=== PATIENT | male | born 1940 | race Caucasian/White ===

== ENCOUNTER → 2016-03-31 | Outpatient (CLI) | payer BC ==
[~2016-03-31] MED LIST: ASPI-232 PO; ATOR-14 PO; CLOP1TAB15 PO; DOCU100C31 PO; DONE1TAB11 PO; ISOS60TA2 PO; LISI2.5T5 PO; METO1TAB31 PO; NITR0.4S UT; PANT1TAB48 PO; POLY335019 PO; TAMS0.4C59 PO
[2016-03-31 13:34] LABS: BASO % 0.6 %; BASO ABS # 0.03 K/uL (0-0.2); COMPLETE YES; EOS % 2.4 %; HEMATOCRIT 42.5 % (42-52); IG% 0.2 %; LYMPH % 24.5 %; LYMPH ABS # 1.14 K/uL (1.2-3.4); MEAN CELL VOLUME 96.8 fL (80-100); MEAN CORPUSCULAR HEMOGLOBIN 33.9 pg (25-34); MEAN CORPUSCULAR HGB CONC 35.1 g/dl (32-36); MEAN PLATELET VOLUME 11.7 fL (7.4-10.4); NEUT % 58.3 %; PLATELET COUNT 160 K/uL (130-400); RED BLOOD COUNT 4.39 M/uL (4.7-6.1); WHITE BLOOD COUNT 4.65 K/uL (4.8-10.8)
[2016-03-31 14:06] LABS: ALT/SGPT 27 U/L (12-78); BLOOD UREA NITROGEN 17 mg/dl (7-18); BUN/CREATININE RATIO 13.1 (10-20); CALCIUM 9.8 mg/dl (8.5-10.1); CARBON DIOXIDE 26 mmol/L (21-32); CHLORIDE 103 mmol/L (98-107); CHOLESTEROL 167 mg/dl (0-200); GLUCOSE 88 mg/dl (70-99); POTASSIUM 3.9 mmol/L (3.5-5.1); SODIUM 137 mmol/L (136-145); TRIGLYCERIDES 36 mg/dl (0-150); VERY LOW DENSITY LIPOPROT CALC 7 mg/dl
[2016-03-31 14:13] LABS: ALB/GLOB RATIO 1.1 (0.9-2); ALKALINE PHOSPHATASE 52 U/L (45-117); AST/SGOT 26 U/L (15-37); CHOLESTEROL/HDL RATIO 1.5; HDL CHOLESTEROL 114 mg/dl; LDL CHOLESTEROL CALCULATED 46 mg/dl
--- NOTE | 2016-04-04 10:37 | CODING QUERY MEDICAL NECESSITY ---
SUPPORTING DIAGNOSIS NEEDED A supporting diagnosis is required for the test/procedure performed on this patient in order for us to be reimbursed by the patient's insurance. Please provide a supporting diagnosis for the following test/procedure listed below next to the test name along with your signature. *If there is no additional diagnosis for this patient that would support the following test/procedure please document that below next to the test/procedure. Test(s)/Procedure(s) that require a supporting diagnosis: * VITAMIN D 25-HYDROXY DIAGNOSIS: * VITAMIN B-12 LEVEL DIAGNOSIS: * DOS: 03/31/16 Provider Signature: Date: Thank you Chelsey Hussein Health Information Management Once completed, please kindly fax back to [phone] For questions please call [phone]
== END | disposition home or self-care (01) ==
LOC: C.LABBC 10:28
PROVIDERS: ATTEND Internal Medicine Geriatric Medicine
DX: I10 Essential (primary) hypertension (principal)

== ENCOUNTER → 2016-04-07 | Outpatient (CLI) | payer BC ==
--- NOTE | 2016-04-07 12:02 | DIAGNOSTIC IMAGING REPORT ---
MRI LUMBAR SPINE WITHOUT IV CONTRAST CLINICAL HISTORY: Chronic low back pain. Bilateral lower extremity numbness. COMPARISON STUDY: No priors. TECHNIQUE: MRI of the lumbar spine is performed utilizing various T1 and T2-weighted sequences in the axial and sagittal planes. IV contrast was not administered for this examination. FINDINGS: Lumbar spine: Vertebral body height is maintained throughout the lumbar spine. There is minimal anterolisthesis at L4-L5. Minimal retrolisthesis is seen at L2-L3. The transverse and spinous processes are intact as visualized. Anterior osteophytes are seen throughout. Advanced chronic degenerative endplate change is present at L5-S1. There is only minimal marrow edema at this level. Mild endplate change and edema is also seen at L2-L3. No destructive bony lesion is identified. Intervertebral discs: There is advanced degenerative disc desiccation and loss of height throughout the lumbar spine. This is severe at all levels, greatest at L5-S1. Spinal cord: The visualized spinal cord is normal in morphology and signal intensity. The conus medullaris terminates at the L1-L2 interspace. There is severe tethering of the nerve roots of the cauda equina seen at L2-L3, L3-L4, and L4-L5. Several of the nerve roots appear coiled and mildly thickened. L1-L2: There is a posterior disc bulge with annular fissure. There is no significant acquired compromise of the central canal at this level. The neural foramina are patent. L2-L3: There is a broad-based posterior disc bulge eccentric to the left. In conjunction with hypertrophy of the ligamentum flavum there is mild acquired compromise of the central canal at this level. The minimum AP diameter measures 9 mm. There is severe bilateral subarticular stenosis, left greater than right with probable impingement on the exiting bilateral L2 nerve roots as well as the transiting nerve roots. There is mild neural foraminal stenosis bilaterally secondary to facet arthropathy. L3-L4: There is broad-based posterior disc bulge with annular fissure. In conjunction with hypertrophy of the ligamentum flavum there is moderate central canal stenosis at this level. The minimum AP diameter measures 6 mm. There is severe bilateral subarticular stenosis, with probable impingement on the exiting bilateral L3 nerve roots as well as the transiting bilateral nerve roots. Facet arthropathy causes minimal neural foraminal stenosis. L4-L5: There is posterior disc bulge with annular fissure. In conjunction with hypertrophy of the ligamentum flavum this causes severe central canal stenosis. The minimum AP diameter measures 4 mm. There is severe bilateral subarticular stenosis, with probable impingement on the exiting bilateral L4 and the transiting bilateral L5 nerve roots. Facet arthropathy causes minimal neural foraminal stenosis. L5-S1: There is a small posterior disc bulge eccentric to the right. There is no significant acquired compromise of the central canal at this level. There is mild bilateral subarticular stenosis. This may impinge on the exiting bilateral L5 nerve roots as well as the transiting right S1 nerve root. Facet arthropathy causes moderate right and mild left neural foraminal stenosis. Sacrum: There is fatty marrow replacement noted in the sacrum. No acute abnormality is seen. Soft tissues: There is moderate left hydronephrosis. The left ureter is normal in caliber and this likely represents a UPJ type obstruction. The bladder is markedly distended. The bladder wall is thickened and trabeculated, suggesting chronic outlet obstruction. The paraspinous soft tissues are normal in appearance. IMPRESSION: 1. Moderate to advanced lumbosacral spondylosis as above with multilevel acquired compromise of the central canal. This is greatest at L4-L5. See above discussion for detailed level by level analysis. 2. Degenerative disc disease with associated endplate change as above. There is no MRI evidence of fracture. 3. There is multilevel tethering of the nerve roots of the cauda equina. Several nerve roots appear coiled and mildly thickened. This may represent a mild reactive arachnoiditis secondary to spinal stenosis. 4. There is moderate left hydronephrosis. 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 Consider follow-up with urology. 5. The bladder wall is distended. The bladder wall is thickened and trabeculated, and this likely represents the sequelae of chronic bladder obstruction. Dictated: 04/07/2016 10:49 AM Transcribed: 04/07/2016 12:01 PM [facility] Electronically signed by: Eduar Rosas M.D. 04/07/2016 12:07 PM Dictated Date/Time: 04/07/2016 10:49 AM
== END | disposition home or self-care (01) ==
LOC: C.MRIBC 09:24
PROVIDERS: ATTEND Internal Medicine
DX: M48.06 Spinal stenosis, lumbar region (principal)

== ENCOUNTER → 2016-05-03 | Outpatient (CLI) | payer BC ==
[~2016-05-03] MED LIST changes: -CLOP1TAB15 PO; -LISI2.5T5 PO
== END | disposition home or self-care (01) ==
LOC: C.LABSPEC 17:07
PROVIDERS: ATTEND Nurse Practitioner Adult Health
DX: N40.1 Benign prostatic hyperplasia with lower urinary tract symptoms (principal); R33.9 Retention of urine, unspecified

== ENCOUNTER → 2016-05-10 | Outpatient (CLI) | payer BC ==
[~2016-05-10] MED LIST changes: +OPTIRAY 300 IV PRN
--- NOTE | 2016-05-10 14:56 | DIAGNOSTIC IMAGING REPORT ---
IVP W/OR W/O TOMOGRAMS HISTORY: R33.9 Incomplete bladder emptying NEGATIVE TO ALL [id number] COMPARISON STUDY: Lumbar spine MRI 04/07/2016. FINDINGS: [employer] images demonstrate extensive overlying bowel gas. There are few pelvic calcifications consistent with phleboliths. No definite renal or ureteral calculi. There are surgical clips within the left side of the abdomen. Confirmation of a moderate left hydronephrosis with probable caliber change at the ureteropelvic junction. The left ureter is not identified. No right-sided hydronephrosis. The right visualized ureter appears be normal in course and caliber. The bladder is normal in size and shape. Small postvoid residual. IMPRESSION: 1. Near nondiagnostic evaluation of the urinary system due to the extensive overlying bowel gas. 2. Confirmation of the moderate left hydronephrosis. Probable caliber change at the ureteropelvic junction. This could be due to a congenital UPJ obstruction. However, an obstructing lesion cannot be excluded due to the suboptimal evaluation from the overlying bowel gas. 3. Small postvoid residual. 4. No right-sided hydronephrosis. 5. No definite renal or ureteral calculi. Electronically signed by: Saturnino Greenberg M.D. 05/10/2016 2:55 PM Dictated Date/Time: 05/10/2016 2:51 PM
[2016-05-10 15:07] VITALS: BP 194/94; PULSE 58
== END | disposition home or self-care (01) ==
LOC: C.RAD 12:24
PROVIDERS: ATTEND Nurse Practitioner Adult Health
DX: R33.9 Retention of urine, unspecified (principal); N13.30 Unspecified hydronephrosis

== ENCOUNTER → 2016-08-02 | Outpatient (CLI) | payer BC ==
[~2016-08-02] MED LIST changes: +METO-478 PO; -METO1TAB31 PO; -OPTIRAY 300 IV PRN
--- NOTE | 2016-08-02 10:35 | DIAGNOSTIC IMAGING REPORT ---
MRI OF THE BRAIN WITHOUT CONTRAST CLINICAL HISTORY: R47.01 [id number] DEMENTIA. POSSIBLE STROKE. COMPARISON STUDY: None. FINDINGS: Sagittal T1, axial diffusion, proton density and T2 weighted axial, coronal FLAIR, and axial T1-weighted images were acquired. No intra or extra-axial mass lesions are visualized Axial diffusion-weighted images reveal no evidence of acute or subacute infarction. There is no evidence of ventricular dilatation. Proton density T2-weighted and FLAIR images reveal scattered foci of increased T2 signal within the white matter, likely on a small vessel basis. There are no abnormal flow voids. IMPRESSION: 1. No acute intracranial findings 2. No evidence of intracranial mass on this noncontrast study 3. No evidence of acute or subacute infarction 4. Nonspecific foci of increased T2 signal within the white matter, likely on a small vessel basis Electronically signed by: David Sullivan M.D. 08/02/2016 10:33 AM Dictated Date/Time: 08/02/2016 10:30 AM
== END | disposition home or self-care (01) ==
LOC: C.MRI 09:42
PROVIDERS: ATTEND Psychiatry & Neurology Neurology
DX: R47.01 Aphasia (principal)

== ENCOUNTER → 2017-01-04 | Outpatient (CLI) | payer BC ==
[2017-01-04 17:15] LABS: URINE APPEARANCE CLOUDY (CLEAR); URINE BILIRUBIN NEG (NEG); URINE COLOR YELLOW; URINE NITRITE NEG (NEG); URINE PH 6.5 (4.5-7.5); URINE SPECIFIC GRAVITY 1.013 (1.000-1.030); UROBILINOGEN NEG (NEG)
[2017-01-04 17:18] LABS: MANUAL MICROSCOPIC REQUIRED? NO; REVIEW REQ? NO
== END | disposition home or self-care (01) ==
LOC: C.LABBC 13:01
PROVIDERS: ATTEND Internal Medicine
DX: R31.9 Hematuria, unspecified (principal)

== ENCOUNTER → 2017-01-17 | Outpatient (CLI) | payer BC ==
[2017-01-17 13:39] LABS: URINE APPEARANCE CLEAR (CLEAR); URINE BILIRUBIN NEG (NEG); URINE COLOR YELLOW; URINE EPITHELIAL CELL AUTO >30 /lpf (0-5); URINE NITRITE NEG (NEG); URINE PH 6.5 (4.5-7.5); URINE SPECIFIC GRAVITY 1.015 (1.000-1.030); UROBILINOGEN NEG (NEG)
[2017-01-17 13:48] LABS: MANUAL MICROSCOPIC REQUIRED? NO; REVIEW REQ? NO
== END | disposition home or self-care (01) ==
LOC: C.LABBC 12:07
PROVIDERS: ATTEND Internal Medicine
DX: R31.9 Hematuria, unspecified (principal)

== ENCOUNTER → 2017-05-29 | Outpatient (CLI) | payer BC ==
[~2017-05-29] MED LIST changes: -DONE1TAB11 PO; +DONE5TAB26 PO; +PANT1TAB3 PO; -PANT1TAB48 PO
[2017-05-29 12:56] LABS: BASO % 0.7 %; BASO ABS # 0.03 K/uL (0-0.2); EOS % 4.9 %; EOS ABS # 0.22 K/uL (0-0.5); HEMATOCRIT 42.2 % (42-52); HEMOGLOBIN 14.5 g/dL (14.0-18.0); IG# 0.01 K/uL (0.00-0.02); LYMPH % 26.3 %; LYMPH ABS # 1.19 K/uL (1.2-3.4); MEAN CELL VOLUME 97.9 fL (80-100); MEAN CORPUSCULAR HEMOGLOBIN 33.6 pg (25-34); MEAN CORPUSCULAR HGB CONC 34.4 g/dl (32-36); MEAN PLATELET VOLUME 11.4 fL (7.4-10.4); MONO % 12.2 %; MONO ABS # 0.55 K/uL (0.11-0.59); NEUT % 55.7 %; NEUT ABS # 2.52 K/uL (1.4-6.5); PLATELET COUNT 144 K/uL (130-400); RED CELL DISTRIBUTION WIDTH CV 12.9 % (11.5-14.5); RED CELL DISTRIBUTION WIDTH SD 46.3 fL (36.4-46.3); WHITE BLOOD COUNT 4.52 K/uL (4.8-10.8)
[2017-05-29 14:04] LABS: BLOOD UREA NITROGEN 16 mg/dl (7-18); CREATININE 1.54 mg/dl (0.60-1.40); GLUCOSE 93 mg/dl (70-99)
[2017-05-29 14:05] LABS: ALT/SGPT 35 U/L (12-78); AST/SGOT 29 U/L (15-37); CALCIUM 9.4 mg/dl (8.5-10.1); CARBON DIOXIDE 27 mmol/L (21-32); SODIUM 138 mmol/L (136-145)
[2017-05-29 14:13] LABS: ALKALINE PHOSPHATASE 57 U/L (45-117); CHOLESTEROL 158 mg/dl (0-200); LDL CHOLESTEROL CALCULATED 55 mg/dl; TOTAL PROTEIN 7.6 gm/dl (6.4-8.2)
== END | disposition home or self-care (01) ==
LOC: C.LABBC 09:12
PROVIDERS: ATTEND Internal Medicine
DX: I25.10 Atherosclerotic heart disease of native coronary artery without angina pectoris (principal); G30.9 Alzheimer's disease, unspecified; F41.9 Anxiety disorder, unspecified; E78.5 Hyperlipidemia, unspecified; I10 Essential (primary) hypertension; K21.9 Gastro-esophageal reflux disease without esophagitis; R47.01 Aphasia; M54.5 Low back pain; M48.061 Spinal stenosis, lumbar region without neurogenic claudication; N40.1 Benign prostatic hyperplasia with lower urinary tract symptoms

== ENCOUNTER 2018-09-18 12:59 | Inpatient (IN) ==
--- NOTE | 2018-09-18 14:22 | Emergency Department Note ---
History of Present Illness General Chief complaint: Fall Stated complaint: Rt hip fracture confirmed via outpt xray History of Present Illness Provider complaint: Fall Patient is a 78-year-old male with a past medical history of dementia, CAD, anxiety, BPH, on hospice that presents to ER following a mechanical fall at the residential. is present at bedside who gives the HPI due to dementia. Fall occurred earlier today and since then he has been having severe pain in his right hip. He is mentally at his baseline. No reported head trauma. notes that he is a DNR/DNI. He is at his baseline. History is limited secondary to dementia. The fall was witnessed at the residential. No other exacerbating or remitting factors. She notes she was instructed to come here fo r further discussion and management of the hip fracture which was previously discovered at the residential the x-rays. Home Medications Home Medications Medication Instructions Recorded Confirmed Type isosorbide mononitrate 60 mg PO QAM 08/22/18 09/18/18 History metoprolol succinate 12.5 mg PO QAM 08/22/18 09/18/18 History nitroglycerin [Nitrostat] 0.4 mg SUBLINGUAL UD PRN 08/22/18 09/18/18 History Allergies Allergy/AdvReac Type Severity Reaction Status Date / Time No Known Allergies Allergy Verified 09/18/18 14:48 Past Med/Surg History Medical History Closed right hip fracture (Acute) Vision problem Onychomycosis of toenail Lumbar spinal stenosis Hypertension (Chronic) Hyperlipidemia Hydronephrosis Enlarged prostate with lower urinary tract symptoms (LUTS) Dementia, Alzheimer's, with behavior disturbance (Chronic) Coronary artery stenosis Chronic low back pain Chronic constipation Chronic GERD Benign prostatic hyperplasia with urinary obstruction Aphasia Anxiety Anemia Abnormal weight loss Alzheimer's dementia GERD (gastroesophageal reflux disease) (Chronic) Surgical History S/P coronary artery stent placement (Chronic) Stented coronary artery (Chronic) Family History Mother Cardiac disorder Anxiety Cancer Myocardial infarction Breast cancer Father Cardiac disorder Myocardial infarction Grandmother Depression Grandmother Diabetes Other Family history non-contributory Social History Preferred Language: Macedonian Feels Safe at Home: Yes Smoking Status: Unknown if ever smoked Review of Systems See HPI for pertinent positives & negatives. and A total of 10 systems reviewed and were otherwise negative Physical Exam Vital Signs Vital Signs - 24 hr 09/18/18 13:09 09/18/18 13:30 09/18/18 14:00 Temperature 36.6 C Temperature Source Axillary Sepsis Recent Fever Within 48 Hours No Sepsis New/Unexplained Change in Mental Status No Sepsis Action Taken by Nursing No Action Required Pulse Rate 74 75 Pulse Rate [Apical] Pulse Rate from SpO2 Sensor Respiratory Rate 13 17 12 Blood Pressure 165/91 H 146/81 H 150/83 H Blood Pressure [Right Arm] Blood Pressure Mean 115 102 105 Blood Pressure Mean [Right Arm] Pulse Oximetry 99 Oxygen Delivery Method Room Air 09/18/18 14:08 09/18/18 14:30 09/18/18 15:20 Temperature Temperature Source Sepsis Recent Fever Within 48 Hours Sepsis New/Unexplained Change in Mental Status Sepsis Action Taken by Nursing Pulse Rate 74 Pulse Rate [Apical] 72 Pulse Rate from SpO2 Sensor 75 Respiratory Rate 14 18 Blood Pressure 159/98 H Blood Pressure [Right Arm] 145/90 H Blood Pressure Mean 118 Blood Pressure Mean [Right Arm] 108 Pulse Oximetry 99 97 98 Oxygen Delivery Method Room Air Room Air Room Air GENERAL: Sitting up in bed, chronically ill-appearing with arms crossed nonverbal HEAD: Normocephalic atraumatic EYE EXAM: normal conjunctiva. PERRL and EOM's grossly intact. OROPHARYNX: no exudate, no erythema, lips, buccal mucosa, and tongue normal and mucous membranes are moist NECK: supple, no nuchal rigidity, no adenopathy, non-tender LUNGS: Clear to auscultation. Normal chest wall mechanics HEART: no murmurs, S1 normal and S2 normal ABDOMEN: abdomen soft, non-tender, normo-active bowel sounds, no masses, no rebound or guarding. BACK: Back is symmetrical on inspection and there is no deformity, no midline tenderness, no CVA tenderness. SKIN: no rashes and no bruising UPPER EXTREMITIES: upper extremities are grossly normal. LOWER EXTREMITIES: Right hip is shortened and externally rotated acutely tender to palpation over the right hip. No tenderness over the right knee or ankle. DP 2 out of 4. Skin is intact. NEURO EXAM: Alert, moving upper extremities and holding them close to the chest. Course ED COURSE: Vital signs were reviewed and showed hypertension. The patients medical record was reviewed The above diagnostic studies were performed and reviewed. ED treatments and interventions as stated above. 1418: The patient was evaluated in room C05. A complete history and physical examination was performed. 1615: Upon reevaluation, the patient is resting in bed. I discussed my findings with the patient and he understands and agrees with the treatment plan. 1634: I spoke to Dr. Archie Gibson [facility] Hospitalist about the patient's case and he is going to accept the patient for further evaluation. Based on the patients age, coexisting illnesses, exam and lab findings the decision to treat as an inpatient was made. The patient remained stable while under my care. The patient will be evaluated for further management. Consultations Consultation #1: I spoke to Dr. Archie Gibson [facility] Hospitalist about the patient's case and he is going to accept the patient for further evaluation. Time: 16:34 Administered Medications Miscellaneous (Patient's Height And/Or Weight Needed) 1 ea N/A Q2H PATY Stop: 10/18/18 18:44 Last Admin: 09/18/18 19:49 Dose: 1 ea Documented by: [id number] Discontinued Medications Lidocaine HCl (Xylocaine Jely 2%) Confirm Administered Dose 5 ml .ROUTE .STK-MED ONE Stop: 09/18/18 18:41 Last Admin: 09/18/18 19:15 Dose: 5 ml Documented by: [id number] Lidocaine HCl (Xylocaine Jely 2%) 5 ml EXT NOW ONE Stop: 09/18/18 18:39 Last Admin: 09/18/18 19:15 Dose: Not Given Documented by: [id number] Medical Decision Making Differential Diagnosis Differential diagnoses include major intracranial, cervical, spinal, thoracic, abdominal, pelvic and neurologic injury. Fracture, contusion, sprain, strain, laceration, abrasions included as well. Medical Records Attestation: I reviewed the patient's medical records. Home Medications Current Medication List: was personally reviewed by me Laboratory Data Attestation: I reviewed the patient's lab results. Result diagrams: 09/18/18 14:27 09/18/18 14:27 Lab Results 09/18/18 09/18/18 09/18/18 Range/Units 14:27 14:27 14:27 WBC 8.57 (4.8-10.8) K/uL RBC 3.99 L (4.7-6.1) M/uL Hgb 12.7 L (14.0-18.0) g/dL Hct 37.3 L (42-52) % MCV 93.5 (80-100) fL MCH 31.8 (25-34) pg MCHC 34.0 (32-36) g/dL RDW Std Deviation 43.3 (36.4-46.3) fL RDW Coeff of Radha 12.8 (11.5-14.5) % Plt Count 196 (130-400) K/uL MPV 10.8 H (7.4-10.4) fL Immature Gran % (Auto) 0.5 % Neut % (Auto) 82.9 % Lymph % (Auto) 9.9 % [place] % (Auto) 6.3 % Eos % (Auto) 0.2 % Baso % (Auto) 0.2 % Immature Gran # (Auto) 0.04 H (0.00-0.02) K/uL Neut # (Auto) 7.10 H (1.4-6.5) K/uL Lymph # (Auto) 0.85 L (1.2-3.4) K/uL [place] # (Auto) 0.54 (0.11-0.59) K/uL Eos # (Auto) 0.02 (0-0.5) K/uL Baso # (Auto) 0.02 (0-0.2) K/uL PT 11.5 (9.0-12.0) Seconds INR 1.1 (0.9-1.1) Sodium 141 (136-145) mmol/L Potassium 4.4 (3.5-5.1) mmol/L Chloride 107 (98-107) mmol/L Carbon Dioxide 28 (21-32) mmol/L Anion Gap 7.0 (3-11) BUN 23 H (7-18) mg/dl Creatinine 1.00 (0.6-1.4) mg/dl Est Cr Clr Drug Dosing Not Reportable Est GFR ( Amer) 84.4 Est GFR (Non-Af Amer) 72.8 BUN/Creatinine Ratio 22.6 H (10-20) Glucose 105 H (70-99) mg/dl Calcium 9.5 (8.5-10.1) mg/dl Total Bilirubin 0.6 (0.2-1) mg/dl AST 33 (15-37) U/L ALT 38 (12-78) U/L Alkaline Phosphatase 92 (45-117) U/L Total Protein 7.3 (6.4-8.2) gm/dl Albumin 3.0 L (3.4-5.0) gm/dl Globulin 4.3 H (2.5-4.0) gm/dl Albumin/Globulin Ratio 0.7 L (0.9-2) Lipase 472 H (73-393) U/L Specimen Hemolysis Urine Color Urine Appearance (Clear) Urine pH (4.5-7.5) Ur Specific Wilson (1.000-1.030) Urine Protein (Negative) Urine Glucose (UA) (Negative) Urine Ketones (Negative) Urine Blood (Negative) Urine Nitrite (Negative) Urine Bilirubin (Negative) Urine Urobilinogen (Negative) Ur Leukocyte Esterase (Negative) Urine WBC (Auto) (0-5) /hpf Urine RBC (Auto) (0-4) /hpf U Hyaline Cast (Auto) (0-5) /lpf U Epithel Cells (Auto) (0-5) /lpf Urine Bacteria (Auto) (Negative) 09/18/18 Range/Units 14:40 WBC (4.8-10.8) K/uL RBC (4.7-6.1) M/uL Hgb (14.0-18.0) g/dL Hct (42-52) % MCV (80-100) fL MCH (25-34) pg MCHC (32-36) g/dL RDW Std Deviation (36.4-46.3) fL RDW Coeff of Radha (11.5-14.5) % Plt Count (130-400) K/uL MPV (7.4-10.4) fL Immature Gran % (Auto) % Neut % (Auto) % Lymph % (Auto) % [place] % (Auto) % Eos % (Auto) % Baso % (Auto) % Immature Gran # (Auto) (0.00-0.02) K/uL Neut # (Auto) (1.4-6.5) K/uL Lymph # (Auto) (1.2-3.4) K/uL [place] # (Auto) (0.11-0.59) K/uL Eos # (Auto) (0-0.5) K/uL Baso # (Auto) (0-0.2) K/uL PT (9.0-12.0) Seconds INR (0.9-1.1) Sodium (136-145) mmol/L Potassium (3.5-5.1) mmol/L Chloride (98-107) mmol/L Carbon Dioxide (21-32) mmol/L Anion Gap (3-11) BUN (7-18) mg/dl Creatinine (0.6-1.4) mg/dl Est Cr Clr Drug Dosing Est GFR ( Amer) Est GFR (Non-Af Amer) BUN/Creatinine Ratio (10-20) Glucose (70-99) mg/dl Calcium (8.5-10.1) mg/dl Total Bilirubin (0.2-1) mg/dl AST (15-37) U/L ALT (12-78) U/L Alkaline Phosphatase (45-117) U/L Total Protein (6.4-8.2) gm/dl Albumin (3.4-5.0) gm/dl Globulin (2.5-4.0) gm/dl Albumin/Globulin Ratio (0.9-2) Lipase (73-393) U/L Specimen Hemolysis Urine Color Dark Yellow Urine Appearance Clear (Clear) Urine pH 5.5 (4.5-7.5) Ur Specific Wilson 1.021 (1.000-1.030) Urine Protein Negative (Negative) Urine Glucose (UA) Negative (Negative) Urine Ketones Negative (Negative) Urine Blood Trace H (Negative) Urine Nitrite Positive A (Negative) Urine Bilirubin Negative (Negative) Urine Urobilinogen Negative (Negative) Ur Leukocyte Esterase 1+ H (Negative) Urine WBC (Auto) 5-10 H (0-5) /hpf Urine RBC (Auto) 5-10 H (0-4) /hpf U Hyaline Cast (Auto) 1-5 (0-5) /lpf U Epithel Cells (Auto) 10-20 H (0-5) /lpf Urine Bacteria (Auto) 3+ H (Negative) Imaging Data Radiologist's Impression: Radiology results as stated below per my review and the radiologist's interpretation: XR chest 1V portable HISTORY: 78 years-old Male fall acute chest and head trauma status post fall COMPARISON: Chest radiograph 08/22/2018 TECHNIQUE: Portable supine AP view of the chest FINDINGS: Cardiomediastinal and hilar silhouettes are within normal limits. Mild biapical pleural-parenchymal scarring without pneumothorax, pleural effusion, focal airspace consolidation or overt pulmonary edema. Degenerative changes are seen about the shoulders and spine. IMPRESSION: No acute process. The above report was generated using voice recognition software. It may contain grammatical, syntax or spelling errors. Electronically signed by: Jake Rahman M.D. 09/18/2018 3:30 PM XR hip RT 2-3V w pelvis HISTORY: 78 years-old Male fall r hip pain acute right hip pain status post fall COMPARISON: Lumbar spine MRI 04/07/2016 TECHNIQUE: AP view the pelvis with crosstable lateral view of the right hip FINDINGS: Mildly demineralized appearance of the bones. Mild osteoarthritis of the bilateral femoral acetabular joints. There is an acute comminuted intratrochanteric fracture of the right femur with mild apex superior lateral angulation and mild impaction. Moderate soft tissue swelling about the right hip. Fracture fragments are displaced by approximately 6 mm. Peripheral arterial calcifications noted. IMPRESSION: 1. Acute comminuted, mildly angulated and impacted intertrochanteric fracture of the right femur. The above report was generated using voice recognition software. It may contain grammatical, syntax or spelling errors. Electronically signed by: Jake Rahman M.D. 09/18/2018 3:14 PM Blood Pressure Blood Pressure Findings: Elevated blood pressure Blood Pressure Disposition: further management by hospitalist HERNANDO Ayon Patient is a 78-year-old demented gentleman who presents the ER following a fall at the residential with at bedside. Gentleman is essentially nonverbal at this time. Obvious deformity of the right hip. IV was established blood work was obtained. He was slightly hypertensive. Labs show no significant leukocytosis and a mild anemia at 12.7 thousand. INR was unremarkable. BMP along with LFTs bilirubin is unremarkable. Lipase of 472. UA with nitrates white cells and bacteria which resulted after admission. Patient was comfortable as long as he was not being moved. want to explore the possibility of having this fixed for comfort orthopedics was agreeable to evaluating him. Based on this hospitalist was counseled with. Impression & Plan Closed fracture of right hip, Acute right hip pain, Acute UTI Discharge Plan Visit Data *Final* Discharge Date/Time: 09/18/18 17:42 Chief Complaint: Fall Stated Complaint: Rt hip fracture confirmed via outpt xray ED Provider: Ace Linder Discharge Problem: Closed fracture of right hip, Acute right hip pain, Acute UTI Patient Disposition: Admitted As Inpatient Discharge Instructions Interventions: ED Discharge Assessment Last Done: 09/18/18 17:42
[2018-09-18 14:41] LABS: Basophils # (auto) 0.02 K/uL (0-0.2); Basophils % (auto) 0.2 %; Eosinophils # (auto) 0.02 K/uL (0-0.5); Eosinophils % (auto) 0.2 %; Hematocrit (blood only) 37.3 % (42-52); Hemoglobin 12.7 g/dL (14.0-18.0); Immature Granulocytes # (auto) 0.04 K/uL (0.00-0.02); Immature Granulocytes % (auto) 0.5 %; Lymphocytes # (auto) 0.85 K/uL (1.2-3.4); Lymphocytes % (auto) 9.9 %; Mean Corpuscular Volume 93.5 fL (80-100); Mean Platelet Volume 10.8 fL (7.4-10.4); Monocytes # (auto) 0.54 K/uL (0.11-0.59); Monocytes % (auto) 6.3 %; Neutrophils % (auto) 82.9 %; Platelet Count 196 K/uL (130-400); RDW Coefficient of Variation 12.8 % (11.5-14.5); RDW Standard Deviation 43.3 fL (36.4-46.3); Red Blood Count 3.99 M/uL (4.7-6.1); White Blood Count 8.57 K/uL (4.8-10.8)
[2018-09-18 14:59] LABS: Appearance Urine Clear (Clear); Bacteria Urine Automated 3+ (Negative); Bilirubin Urine Negative (Negative); Blood Urine Trace (Negative); Color Urine Dark Yellow; Glucose Urine UA Negative (Negative); Ketones Urine Negative (Negative); Leukocyte Esterase Urine 1+ (Negative); Nitrite Urine Positive (Negative); Protein Urine Negative (Negative); Specific Gravity Urine 1.021 (1.000-1.030); Urobilinogen Urine Negative (Negative); pH Urine 5.5 (4.5-7.5)
[2018-09-18 15:04] LABS: Alanine Aminotransferase 38 U/L (12-78); Alkaline Phosphatase 92 U/L (45-117); BUN Creatinine Ratio 22.6 (10-20); Bilirubin,Total 0.6 mg/dl (0.2-1); Blood Urea Nitrogen 23 mg/dl (7-18); Glucose 105 mg/dl (70-99); Total Protein 7.3 gm/dl (6.4-8.2)
--- NOTE | 2018-09-18 15:15 | XRay Report ---
XR hip RT 2-3V w pelvis HISTORY: 78 years-old Male fall r hip pain acute right hip pain status post fall COMPARISON: Lumbar spine MRI 04/07/2016 TECHNIQUE: AP view the pelvis with crosstable lateral view of the right hip FINDINGS: Mildly demineralized appearance of the bones. Mild osteoarthritis of the bilateral femoral acetabular joints. There is an acute comminuted intratrochanteric fracture of the right femur with mild apex worthy perior lateral angulation and mild impaction. Moderate soft tissue swelling about the right hip. Frac ture fragments are displaced by approximately 6 mm. Peripheral arterial calcifications noted. IMPRESSION: 1. Acute comminuted, mildly angulated and impacted intertrochanteric fracture of the right femur. The above report was generated using voice recognition software. It may contain grammatical, syntax o r spelling errors. Electronically signed by: Jake Rahman M.D. 09/18/2018 3:14 PM
[2018-09-18 15:19] LABS: Albumin Globulin Ratio 0.7 (0.9-2); Calcium 9.5 mg/dl (8.5-10.1); Carbon Dioxide 28 mmol/L (21-32); Chloride 107 mmol/L (98-107); Est GFR (African American) 84.4; Est GFR (Non-African American) 72.8; Globulin 4.3 gm/dl (2.5-4.0); Potassium 4.4 mmol/L (3.5-5.1); Sodium 141 mmol/L (136-145)
[2018-09-18 15:24] LABS: Aspartate Aminotransferase 33 U/L (15-37)
--- NOTE | 2018-09-18 15:31 | XRay Report ---
XR chest 1V portable HISTORY: 78 years-old Male fall acute chest and head trauma status post fall COMPARISON: Chest radiograph 08/22/2018 TECHNIQUE: Portable supine AP view of the chest FINDINGS: Cardiomediastinal and hilar silhouettes are within normal limits. Mild biapical pleural-parenchymal s carring without pneumothorax, pleural effusion, focal airspace consolidation or overt pulmonary edema . Degenerative changes are seen about the shoulders and spine. IMPRESSION: No acute process. The above report was generated using voice recognition software. It may contain grammatical, syntax o r spelling errors. Electronically signed by: Jake Rahman M.D. 09/18/2018 3:30 PM
--- NOTE | 2018-09-18 16:44 | History & Physical Report ---
Date of Service September 18, 2018 Assessment & Plan (1) Closed right hip fracture: Bedrest with traction. Colin catheter. Parenteral narcotics for pain control as needed. Orthopedic consultation. Cardiology consultation for surgical clearance. Obtain cardiac echo Present on Admission?: Yes (2) S/P coronary artery stent placement: Continue current medical management. Consult [facility] cardiology for mika gical clearance Present on Admission?: Yes (3) Hypertension: Controlled with metoprolol Present on Admission?: Yes (4) Dementia, Alzheimer's, with behavior disturbance: Provide supportive care Present on Admission?: Yes (5) DNR (do not resuscitate): Per family request Present on Admission?: Yes History of Present Illness Chief Complaint: Mechanical fall with right hip pain Primary Care Provider: Presley Wright MD 78-year-old male from a local snf with Alzheimer's type dementia. He tried to get up out of the wheelchair and walk today when he fell suffering a right hip fracture. X-rays reveal a comminuted angulated intertrochanteric righ t hip fracture. He will be placed in Thurman's traction. Orthopedic consultation will be requested. He has a history of PTCA with stent. He sees [facility] cardiology who will be consulted for clearance for surgery. Cardiac echo pending. He is a DNR per family request Allergies Allergy/AdvReac Type Severity Reaction Status Date / Time No Known Allergies Allergy Verified 09/18/18 14:48 Home Medications Home Medications Medication Instructions Recorded Confirmed Type isosorbide mononitrate 60 mg PO QAM 08/22/18 09/18/18 History metoprolol succinate 12.5 mg PO QAM 08/22/18 09/18/18 History nitroglycerin [Nitrostat] 0.4 mg SUBLINGUAL UD PRN 08/22/18 09/18/18 History Past Med/Surg History Medical History Closed right hip fracture (Acute) Vision problem Onychomycosis of toenail Lumbar spinal stenosis Hypertension (Chronic) Hyperlipidemia Hydronephrosis Enlarged prostate with lower urinary tract symptoms (LUTS) Dementia, Alzheimer's, with behavior disturbance (Chronic) Coronary artery stenosis Chronic low back pain Chronic constipation Chronic GERD Benign prostatic hyperplasia with urinary obstruction Aphasia Anxiety Anemia Abnormal weight loss Alzheimer's dementia GERD (gastroesophageal reflux disease) (Chronic) Surgical History S/P coronary artery stent placement (Chronic) Stented coronary artery (Chronic) Family History Mother Cardiac disorder Anxiety Cancer Myocardial infarction Breast cancer Father Cardiac disorder Myocardial infarction Grandmother Depression Grandmother Diabetes Other Family history non-contributory Social History Preferred Language: Palestinian Feels Safe at Home: Yes Smoking Status: Unknown if ever smoked Review of Systems Review of Systems: Unobtainable due to cognitive status Physical Exam Physical Exam: General-lethargic from pain medication administered in the ED. Nonverbal HEENT-head atraumatic and normocephalic, TMs intact bilaterally, pupils equal and reactive to light, extraocular muscles intact Neck-no lymphadenopathy or thyromegaly, trachea midline Chest-clear to auscultation percussion. No rales wheezing or rhonchi Cardiac-regular rate and rhythm, normal S1 and S2, no JVD Abdomen-normal bowel sounds, nontender, no hepatosplenomegaly Extremities-no cyanosis, clubbing, or edema. Right lower extremity shortened an d externally rotated Neuro-lethargic from medication. Baseline dementia. No apparent focal defects Psych-cannot assess Results & Data Vital Signs (Past 12 Hours) Vital Signs Temp Pulse Pulse Resp BP BP Pulse Ox 09/18/18 15:20 72 18 145/90 H 98 09/18/18 14:30 74 14 159/98 H 97 09/18/18 14:08 99 09/18/18 14:00 12 150/83 H 09/18/18 13:30 75 17 146/81 H 09/18/18 13:09 36.6 C 74 13 165/91 H 99 Laboratory Results 09/18/18 14:27 09/18/18 14:27 PG Care Time/CCT Total # of Minutes Spent Total Time Spent with Patient: Total time spent is greater than 50% in coordination of care (as documented) at patient's floor/unit and/or counseling patient:
[2018-09-18] MEDS ORDERED: MoRPHine SULFATE 2 MG/ML CARP IV PRN (18:35)
[2018-09-18] MEDS ORDERED: ALUMINUM/MAGNESIUM SUSP 30 ML UDC PO PRN (18:35)
[2018-09-18] MEDS ORDERED: NITROGLYCERIN SL 0.4 MG/TAB TAB SL PRN (18:35)
[2018-09-18] MEDS ORDERED: ONDANSETRON INJ 2 MG/ML 2 ML VIAL IV PRN (18:35)
[2018-09-18] MEDS ORDERED: ACETAMINOPHEN 325 MG TAB PO PRN (18:35)
[2018-09-18] MEDS ORDERED: LIDOCAINE 2% JELLY 5 ML TUBE EXT ONE (18:38)
[2018-09-18] MEDS ORDERED: LIDOCAINE 2% JELLY 5 ML TUBE ONE (18:40)
[2018-09-18 19:07] LABS: INR 1.1 (0.9-1.1); Prothrombin Time 11.5 Seconds (9.0-12.0)
[2018-09-18] MEDS: PATIENT'S HEIGHT AND/OR WEIGHT NEEDED SCH (19:49)
[2018-09-18] MEDS ORDERED: D5W AND NSS 1,000 ML IV SCH (21:00)
[2018-09-18] MEDS ORDERED: ENOXAPARIN INJ 40 MG/0.4 ML SYR SQ SCH (22:00)
[2018-09-19 06:15] LABS: BUN Creatinine Ratio 22.1 (10-20); Calcium 8.5 mg/dl (8.5-10.1); Creatinine Clr Calc Pharmacy 56.8 ml/min; Est GFR (African American) 94.5; Est GFR (Non-African American) 81.6; Potassium 3.7 mmol/L (3.5-5.1)
--- NOTE | 2018-09-19 08:54 | Orthopedic Consultation ---
Date of Consultation September 19, 2018 Assessment & Plan (1) Closed fracture of right hip: I spoke to the patient's this AM. She states that he did not ambulate on his own at the SNF. He has been mainly bed to wheel chair for some time now Cardiology consult has been placed and we will wait for clearance Patient will need a trochanteric femoral nailing if cleared for surgery. Discussed with patient's about non operative plans if not cleared for the OR. We will keep n.p.o. for now. History of Present Illness Reason for Consultation: Right intertrochanteric hip fracture. Attending Physician: Samanta Cummins MD History of Present Illness 78-year-old white male who resides at a local nursing facility. Apparently he was in a wheelchair and trying to get out and ambulate on his own and fell to the ground. He was unable to ambulate thereafter and he was brought to the emergency room. He was seen by the staff and x-rays were taken. It was found that he had a comminuted intertrochanteric hip fracture of the right hip. He was admitted under [facility] physician group hospitalist service and we have been asked to see him for his hip fracture. Patient has a history of multiple comorbidities and a history of dementia and a aphasia. Currently he opens his eyes to verbal stimulation but does not answer any questions. He appears comfortable at this time. Allergies Allergy/AdvReac Type Severity Reaction Status Date / Time No Known Allergies Allergy Verified 09/18/18 14:48 Home Medications Home Medications Medication Instructions Recorded Confirmed Type isosorbide mononitrate 60 mg PO QAM 08/22/18 09/18/18 History metoprolol succinate 12.5 mg PO QAM 08/22/18 09/18/18 History nitroglycerin [Nitrostat] 0.4 mg SUBLINGUAL UD PRN 08/22/18 09/18/18 History Patient History Medical History Closed right hip fracture (Acute) Vision problem Onychomycosis of toenail Lumbar spinal stenosis Hypertension (Chronic) Hyperlipidemia Hydronephrosis Enlarged prostate with lower urinary tract symptoms (LUTS) Dementia, Alzheimer's, with behavior disturbance (Chronic) Coronary artery stenosis Chronic low back pain Chronic constipation Chronic GERD Benign prostatic hyperplasia with urinary obstruction Aphasia Anxiety Anemia Abnormal weight loss Alzheimer's dementia GERD (gastroesophageal reflux disease) (Chronic) Surgical History S/P coronary artery stent placement (Chronic) Stented coronary artery (Chronic) Family History Mother Cardiac disorder Anxiety Cancer Myocardial infarction Breast cancer Father Cardiac disorder Myocardial infarction Grandmother Depression Grandmother Diabetes Other Family history non-contributory Social History Preferred Language: Croatian Communication Ability: Effective marital status: Feels Safe at Home: Yes Smoking Status: Unknown if ever smoked Physical Exam Physical Exam: Patient does not follow verbal commands at this time. Focusing the exam initially on the lower extremity, it is in Thurman's traction currently. Traction is left on during exam. No attempts are made to do range of motion with the right hip or knee secondary to hip fracture. He does move his right toes to stimulation capillary refill is less than 2 seconds there are no areas of ecchymosis or abrasions noted on the right thigh that I can see. Palpation of his right knee does not appear to cause him any discomfort. Left lower extremity appears benign. Gentle logrolling of the left lower extremity with gentle flexion extension of the hip and knee does not appear to cause him any discomfort. Distal pulses are equal bilaterally. Upper extremities appear no ntender at the shoulders elbows and wrists on palpation. Results & Data Vital Signs (Past 12 Hours) Vital Signs Temp Pulse Resp BP Pulse Ox 09/19/18 07:25 36.9 C 78 18 155/77 H 96 09/19/18 00:08 36.5 C 71 16 154/88 H 99 Diagnostic Findings XR hip RT 2-3V w pelvis HISTORY: 78 years-old Male fall r hip pain acute right hip pain status post fall COMPARISON: Lumbar spine MRI 04/07/2016 TECHNIQUE: AP view the pelvis with crosstable lateral view of the right hip FINDINGS: Mildly demineralized appearance of the bones. Mild osteoarthritis of the bilateral femoral acetabular joints. There is an acute comminuted intratrochanteric fracture of the right femur with mild apex superior lateral angulation and mild impaction. Moderate soft tissue swelling about the right hip. Fracture fragments are displaced by approximately 6 mm. Peripheral arterial calcifications noted. IMPRESSION: 1. Acute comminuted, mildly angulated and impacted intertrochanteric fracture of the right femur. (1) Closed fracture of right hip Encounter type: initial encounter Qualified Code(s): S72.001A - Fracture of unspecified part of neck of right femur, initial encounter for closed fracture
[2018-09-19] MEDS: SODIUM CHLORIDE 0.9% 1000ML 1,000 ML IV SCH (09:58)
[2018-09-19] MEDS: METOPROLOL SUCC 25MG EXT REL TAB PO SCH (10:02)
[2018-09-19] MEDS: cefTRIAXone SODIUM 1,000 MG in DEXTROSE 5% 50 ML IV SCH (10:04)
[2018-09-19] MEDS: ISOSORBIDE MONO EXTENDED REL 60 MG TABCR PO SCH (10:05)
--- NOTE | 2018-09-19 12:19 | Consultation Report ---
DATE OF CONSULTATION: 09/19/2018 INPATIENT CARDIOLOGY CONSULTATION CONSULTATION REQUESTED BY: Dr. Almanza. REASON FOR CONSULTATION: Preoperative risk assessment. HISTORY OF PRESENT ILLNESS: Mr. Arreguin is a significantly demented 78-year-old gentleman who normally follows with Fredrick Sauer of our cardiology practice. He was transported to [facility] ER via EMS from his fpc after he had a fall. The patient has a longstanding history of poor p.o. intake and orthostatic near syncope and syncope. According to review of records, the patient stood up from his wheelchair, fell down and then started reacting as if he was in hip pain. Upon arrival to [facility] ER, a closed right hip fracture was confirmed and he was admitted. Currently, the patient is unresponsive which for review of medical records does not appear to be far from his baseline. I did speak with his at bedside who states that he has not been verbalizing or communicating any signs or symptoms as of late. The majority of the history was obtained through review of medical records. PAST SURGICAL HISTORY: 1. Cardiac catheterization most recently 2014 with PCI to the RCA, other nonobstructive disease was present. 2. Colonoscopy. 3. Ureter surgery. MEDICAL ILLNESSES: 1. Severe end-stage dementia. 2. Coronary artery disease status post PCI with other nonobstructive coronary artery disease. 3. Alzheimer's disease. 4. BPH. 5. Hypertension. FAMILY HISTORY: Noncontributory. SOCIAL HISTORY: Denies any alcohol, tobacco or recreational drug use. Currently resides at [facility]. REVIEW OF SYSTEMS: Unobtainable given the patient's current mental status. ALLERGIES: No known drug allergies. MEDICATIONS AN OUTPATIENT: 1. Imdur 60 mg daily. 2. Metoprolol 12.5 mg daily. 3. Aspirin 81 mg daily. PHYSICAL EXAMINATION: VITALS: Temperature 36.9, pulse 78, respiratory rate 12, blood pressure 187/85. GENERAL: Asleep, unresponsive to physical or verbal stimuli. No acute distress. HEENT: Normocephalic, atraumatic. Pupils equal, round, reactive to light and accommodation. Extraocular muscles intact. Anicteric sclerae. Moist mucous membranes. Poor dentition. NECK: No JVD, no bruit. CARDIOVASCULAR: Regular, but distant. Unable to appreciate any murmurs, rubs or gallops. PULMONARY: Clear to auscultation bilaterally. No rales, rhonchi, or wheezing. ABDOMEN: Bowel sounds x4, soft. No rebound, guarding, tenderness. No organomegaly. EXTREMITIES: No clubbing, cyanosis or edema. +2 pedal pulses bilaterally. SKIN: Warm and dry. IMPRESSION: 1. Preop risk assessment prior to undergoing right hip fracture repair. 2. Coronary artery disease. 3. Severe dementia. RECOMMENDATIONS: It was my pleasure to see Mr. Arreguin in consultation today. Mrs. Arreguin was counseled that given the fact that he is not communicate any symptoms as of late that I would place him as moderate to high risk for any adverse perioperative cardiovascular event with his risk of approximately around 5%. She was further counseled that no further cardiac testing or intervention would further lower that risk. She states that she understands, she is accepting of this risk and wishes to proceed with surgery. Otherwise, his metoprolol should be continued, uninterrupted throughout the perioperative period as well as his daily aspirin.
--- NOTE | 2018-09-19 12:46 | XRay Report ---
XR femur RT 2V routine CLINICAL HISTORY: fracture COMPARISON: 09/18/2018 DISCUSSION: There is intertrochanteric right hip fracture with varus angulation. There is no dislocat ion. Osteoarthritic changes are present within the right knee. IMPRESSION: Intertrochanteric right hip fracture. Electronically signed by: David Sullivan M.D. 09/19/2018 12:45 PM
--- NOTE | 2018-09-19 12:54 | Hospitalist Progress Note ---
Date of Service September 19, 2018 Assessment & Plan (1) Closed right hip fracture: - Following mechanical fall at [facility]; XR with intertrochanteric right hip fracture. - Bedrest with traction. - Colin catheter. - Morphine IV prn pain. - Ortho consulted, plan for repair this afternoon following cardiology clearance. (2) UTI (urinary tract infection): - Gram negative bacilli noted on UC, sensitivities to follow. - Continue Ceftriaxone IV for empiric coverage. - IV fluids at 80 cc/hr. (3) Metabolic encephalopathy: - In setting of baseline dementia; acute confusion is likely related to UTI. - Cannot obtain history from patient. (4) Dementia, Alzheimer's, with behavior disturbance: - Supportive care. - Resides at [facility]. (5) CAD (coronary artery disease): - S/p most recently PCI to the RCA in 2014. - Continue home Imdur and Metoprolol as prescribed. - Will need to resume Aspirin post op. - Consulting [facility] for preop clearance. (6) S/P coronary artery stent placement: - Consulting cardiology as noted above. (7) Hypertension: - Continue Metoprolol and Imdur as prescribed. - BP has been elevated -- SBP 150-180's. (8) Stage III chronic kidney disease: - Renally dose all meds. (9) DNR (do not resuscitate): - Per family requests. (10) DVT prophylaxis: - SCDS; holding pharmacologic ppx for procedure. Dispo: Med/surg; ortho following, will need nailing likely this afternoon. Supervising Physician Co-Signing Physician Notes JEFFERY Supervision Note: I did not personally see or examine the patient today, but I verified all baldwin points of JEFFERY Jimenez's assessment and plan with the following exceptions/additions: None Subjective His was present at bedside -- obtained history from her due to dementia. He speaks very few words at [facility]. He has not complained of any chest pain, SOB, hip pain. Plan for OR today following cardiology clearance. Review of Systems Review of Systems: Unobtainable due to cognitive status Physical Exam Physical Exam: General: Resting comfortably HEENT: NC/AT; PERRLA with EOMI; [place] conjunctiva, MMM. No erythema of posterior pharynx Neck: Supple and nontender Cardiac: RRR Lungs: CTA bilaterally Abdomen: Bowel normoactive X 4; Nontender to palpation Extremities: Warm. No edema present Neuro: No focal weakness; baseline dementia. Skin: No rash Results & Data Vital Signs (Past 12 Hours) Vital Signs Temp Pulse Resp BP Pulse Ox 09/19/18 09:56 78 187/85 H 09/19/18 07:25 36.9 C 78 18 155/77 H 96 Laboratory Results 09/19/18 09/18/18 09/18/18 Range/Units 05:44 19:30 14:40 WBC (4.8-10.8) K/uL RBC (4.7-6.1) M/uL Hgb (14.0-18.0) g/dL Hct (42-52) % MCV (80-100) fL MCH (25-34) pg MCHC (32-36) g/dL RDW Std Deviation (36.4-46.3) fL RDW Coeff of Radha (11.5-14.5) % Plt Count (130-400) K/uL MPV (7.4-10.4) fL Immature Gran % (Auto) % Neut % (Auto) % Lymph % (Auto) % Slope % (Auto) % Eos % (Auto) % Baso % (Auto) % Immature Gran # (Auto) (0.00-0.02) K/uL Neut # (Auto) (1.4-6.5) K/uL Lymph # (Auto) (1.2-3.4) K/uL Slope # (Auto) (0.11-0.59) K/uL Eos # (Auto) (0-0.5) K/uL Baso # (Auto) (0-0.2) K/uL PT (9.0-12.0) Seconds INR (0.9-1.1) Sodium 142 (136-145) mmol/L Potassium 3.7 D (3.5-5.1) mmol/L Chloride 110 H (98-107) mmol/L Carbon Dioxide 28 (21-32) mmol/L Anion Gap 4.0 (3-11) BUN 20 H (7-18) mg/dl Creatinine 0.91 (0.6-1.4) mg/dl Est Cr Clr Drug Dosing 56.8 Est GFR ( Amer) 94.5 Est GFR (Non-Af Amer) 81.6 BUN/Creatinine Ratio 22.1 H (10-20) Glucose 129 H (70-99) mg/dl Calcium 8.5 (8.5-10.1) mg/dl Total Bilirubin (0.2-1) mg/dl AST (15-37) U/L ALT (12-78) U/L Alkaline Phosphatase (45-117) U/L Total Protein (6.4-8.2) gm/dl Albumin (3.4-5.0) gm/dl Globulin (2.5-4.0) gm/dl Albumin/Globulin Ratio (0.9-2) Lipase (73-393) U/L Specimen Hemolysis Urine Color Dark Yellow Urine Appearance Clear (Clear) Urine pH 5.5 (4.5-7.5) Ur Specific [place] 1.021 (1.000-1.030) Urine Protein Negative (Negative) Urine Glucose (UA) Negative (Negative) Urine Ketones Negative (Negative) Urine Blood Trace H (Negative) Urine Nitrite Positive A (Negative) Urine Bilirubin Negative (Negative) Urine Urobilinogen Negative (Negative) Ur Leukocyte Esterase 1+ H (Negative) Urine WBC (Auto) 5-10 H (0-5) /hpf Urine RBC (Auto) 5-10 H (0-4) /hpf U Hyaline Cast (Auto) 1-5 (0-5) /lpf U Epithel Cells (Auto) 10-20 H (0-5) /lpf Urine Bacteria (Auto) 3+ H (Negative) Nasal Screen MRSA (PCR) Negative (Negative) 09/18/18 09/18/18 09/18/18 Range/Units 14:27 14:27 14:27 WBC 8.57 (4.8-10.8) K/uL RBC 3.99 L (4.7-6.1) M/uL Hgb 12.7 L (14.0-18.0) g/dL Hct 37.3 L (42-52) % MCV 93.5 (80-100) fL MCH 31.8 (25-34) pg MCHC 34.0 (32-36) g/dL RDW Std Deviation 43.3 (36.4-46.3) fL RDW Coeff of Radha 12.8 (11.5-14.5) % Plt Count 196 (130-400) K/uL MPV 10.8 H (7.4-10.4) fL Immature Gran % (Auto) 0.5 % Neut % (Auto) 82.9 % Lymph % (Auto) 9.9 % Slope % (Auto) 6.3 % Eos % (Auto) 0.2 % Baso % (Auto) 0.2 % Immature Gran # (Auto) 0.04 H (0.00-0.02) K/uL Neut # (Auto) 7.10 H (1.4-6.5) K/uL Lymph # (Auto) 0.85 L (1.2-3.4) K/uL Slope # (Auto) 0.54 (0.11-0.59) K/uL Eos # (Auto) 0.02 (0-0.5) K/uL Baso # (Auto) 0.02 (0-0.2) K/uL PT 11.5 (9.0-12.0) Seconds INR 1.1 (0.9-1.1) Sodium 141 (136-145) mmol/L Potassium 4.4 (3.5-5.1) mmol/L Chloride 107 (98-107) mmol/L Carbon Dioxide 28 (21-32) mmol/L Anion Gap 7.0 (3-11) BUN 23 H (7-18) mg/dl Creatinine 1.00 (0.6-1.4) mg/dl Est Cr Clr Drug Dosing Not Reportable Est GFR ( Amer) 84.4 Est GFR (Non-Af Amer) 72.8 BUN/Creatinine Ratio 22.6 H (10-20) Glucose 105 H (70-99) mg/dl Calcium 9.5 (8.5-10.1) mg/dl Total Bilirubin 0.6 (0.2-1) mg/dl AST 33 (15-37) U/L ALT 38 (12-78) U/L Alkaline Phosphatase 92 (45-117) U/L Total Protein 7.3 (6.4-8.2) gm/dl Albumin 3.0 L (3.4-5.0) gm/dl Globulin 4.3 H (2.5-4.0) gm/dl Albumin/Globulin Ratio 0.7 L (0.9-2) Lipase 472 H (73-393) U/L Specimen Hemolysis Urine Color Urine Appearance (Clear) Urine pH (4.5-7.5) Ur Specific [place] (1.000-1.030) Urine Protein (Negative) Urine Glucose (UA) (Negative) Urine Ketones (Negative) Urine Blood (Negative) Urine Nitrite (Negative) Urine Bilirubin (Negative) Urine Urobilinogen (Negative) Ur Leukocyte Esterase (Negative) Urine WBC (Auto) (0-5) /hpf Urine RBC (Auto) (0-4) /hpf U Hyaline Cast (Auto) (0-5) /lpf U Epithel Cells (Auto) (0-5) /lpf Urine Bacteria (Auto) (Negative) Nasal Screen MRSA (PCR) (Negative) PG Care Time/CCT Total # of Minutes Spent Total Time Spent with Patient: Total time spent is greater than 50% in coordination of care (as documented) at patient's floor/unit and/or counseling patient:
--- NOTE | 2018-09-19 16:10 | Anesthesiology Consultation ---
Date of Service September 19, 2018 Assessment & Plan (1) Encounter for pre-operative examination: Chart Review Chart Review: Acceptable Risk for Surgery Consults Requested none ASA ASA4 Proposed Anesthesia Anesthesia Type: MAC Spinal Risk / Benefits Reviewed With: PT / POA / Parent / Guardian, Accepts Plan and Informed Consent Obtained History Surgery Operation Date: 09/19/18 14:05 Proposed Procedures p Intramedullary Eb Femur - Presley Albarran MD Height/Weight Height: 5 ft 5 in Weight: 58.1 kg Allergies Allergy/AdvReac Type Severity Reaction Status Date / Time No Known Allergies Allergy Verified 09/18/18 14:48 Medications Home Medications Medication Instructions Recorded Confirmed Last Taken isosorbide mononitrate 60 mg PO QAM 08/22/18 09/18/18 08/22/18 metoprolol succinate 12.5 mg PO QAM 08/22/18 09/18/18 08/22/18 nitroglycerin [Nitrostat] 0.4 mg SUBLINGUAL UD PRN 08/22/18 09/18/18 Unknown Active Medications Generic Name Dose Route Start Last Admin Trade Name Freq PRN Reason Stop Dose Admin Ceftriaxone Sodium 1,000 mg/ 50 mls @ 100 mls/hr 09/19/18 10:00 09/19/18 11:08 Dextrose IV 09/24/18 09:59 Infused Q24H PATY Infusion Protocol Sodium Chloride 1,000 mls @ 80 mls/hr 09/19/18 09:15 09/19/18 14:04 Nss 1000ml IV 10/19/18 09:14 80 mls/hr .[id number] PATY Infusion Isosorbide Mononitrate 60 mg 09/19/18 09:00 09/19/18 10:05 Imdur Extended Rel PO 10/19/18 08:59 Not Given QAM PATY Metoprolol Succinate 12.5 mg 09/19/18 09:00 09/19/18 10:02 Toprol Xl PO 10/19/18 08:59 12.5 mg QAM PATY Administration NPO Date Last Intake of Fluids: 09/18/18 Time Last Intake of Fluids: 19:00 Date Last Intake of Solids: 09/18/18 Time Last Intake of Solids: 19:00 Past Medical History Medical History Closed right hip fracture (Acute) Vision problem Onychomycosis of toenail Lumbar spinal stenosis Hypertension (Chronic) Hyperlipidemia Hydronephrosis Enlarged prostate with lower urinary tract symptoms (LUTS) Dementia, Alzheimer's, with behavior disturbance (Chronic) Coronary artery stenosis Chronic low back pain Chronic constipation Chronic GERD Benign prostatic hyperplasia with urinary obstruction Aphasia Anxiety Anemia Abnormal weight loss Alzheimer's dementia GERD (gastroesophageal reflux disease) (Chronic) Exercise / Class Metabolic Activity IV < 2 Limit ADL/Bedbound Past Family History Family History Mother Cardiac disorder Anxiety Cancer Myocardial infarction Breast cancer Father Cardiac disorder Myocardial infarction Grandmother Depression Grandmother Diabetes Other Family history non-contributory Past Surgical History Surgical History S/P coronary artery stent placement (Chronic) Stented coronary artery (Chronic) Past Anesthesia History No Hx of Anesthesia Complications and No Family Hx of Anesthesia Complications History of PONV No Hx of PONV and No Hx of Motion Sickness Social History Smoking Status: Unknown if ever smoked Physical Exam Vital Signs Last Vital Signs Temp 98.4 F 09/19/18 07:25 Pulse 78 09/19/18 09:56 Resp 18 09/19/18 07:25 BP 162/76 H 09/19/18 15:01 Pulse Ox 96 09/19/18 07:25 ENMT Mouth: no dentition abnormality Thyromental Distance: > or= 3.5 Finger Breadths Mallampati Class: III Neck normal visual inspection Respiratory normal respiratory effort Auscultation: lungs clear to auscultation bilaterally Cardiovascular Rate/Rhythm: regular rate and regular rhythm Testing Laboratory Results 09/18/18 14:27 09/19/18 05:44 PT 11.5 Seconds (9.0-12.0) 09/18/18 14:27 INR 1.1 (0.9-1.1) 09/18/18 14:27 Urine Color Dark Yellow 09/18/18 14:40 Urine Appearance Clear (Clear) 09/18/18 14:40 Urine pH 5.5 (4.5-7.5) 09/18/18 14:40 Ur Specific [place] 1.021 (1.000-1.030) 09/18/18 14:40 Urine Protein Negative (Negative) 09/18/18 14:40 Urine Glucose (UA) Negative (Negative) 09/18/18 14:40 Urine Ketones Negative (Negative) 09/18/18 14:40 Urine Nitrite Positive (Negative) A 09/18/18 14:40 Ur Leukocyte Esterase 1+ (Negative) H 09/18/18 14:40 Urine WBC (Auto) 5-10 /hpf (0-5) H 09/18/18 14:40 Urine RBC (Auto) 5-10 /hpf (0-4) H 09/18/18 14:40 U Hyaline Cast (Auto) 1-5 /lpf (0-5) 09/18/18 14:40 U Epithel Cells (Auto) 10-20 /lpf (0-5) H 09/18/18 14:40 Urine Bacteria (Auto) 3+ (Negative) H 09/18/18 14:40 Blood Type A Positive 09/19/18 05:49 Antibody Screen NEGATIVE 09/19/18 05:49 09/18/18 14:40 Urine Culture - Preliminary Urine,Straight Cath Gram negative bacilli Electrocardiogram Date: 08/22/18 Sinus bradycardia Anterior infarct , age undetermined Abnormal ECG When compared with ECG of 02-FEB-2015 17:20, Nonspecific T wave abnormality now evident in Lateral leads Confirmed by Jeremiah Birmingham ([id number]) on 08/23/2018 4:28:09 PM Chest X-Ray Date: 09/18/18 Findings: + NAD Echocardiogram Date: 09/19/18 Technically limited study due to patient's body habitus. Grossly normal LV chamber size and systolic function.
[2018-09-19] MEDS ORDERED: LIDOCAINE HCL 2% 2 ML VIAL/AMP(20MG/ML) INFIL ONE (16:12)
[2018-09-19] MEDS ORDERED: PROPOFOL IV EMULSION 10 MG/ML 20 ML VIAL IV ONE (16:12)
[2018-09-19] MEDS ORDERED: fentaNYL citrate 100 MCG/2 ML VIAL ONE (16:12)
[2018-09-19] MEDS ORDERED: MIDAZOLAM HCL 1 MG/ML 2ML VIAL ONE (16:12)
[2018-09-19] MEDS ORDERED: BUPIVACAINE 0.5 % 5 MG/1 ML PF 10ML VIAL ONE (16:22)
[2018-09-19] MEDS ORDERED: ONDANSETRON INJ 2 MG/ML 2 ML VIAL IV PRN (16:23)
[2018-09-19] MEDS ORDERED: fentaNYL citrate 100 MCG/2 ML VIAL IV PRN (16:23)
[2018-09-19] MEDS ORDERED: ATROPINE SULFATE 0.1 MG/ML 10ML SYR IV PRN (16:23)
[2018-09-19] MEDS ORDERED: ePHEDrine sulfate 50 MG/ML AMP IV PRN (16:23)
--- NOTE | 2018-09-19 16:31 | History & Physical Bridge Note ---
Date of Service September 19, 2018 History & Physical Bridge Note I have examined the patient, reviewed the History & Physical and in the interval since the performance of the History & Physical I have noted the following changes of clinical significance: no changes noted
[2018-09-19] MEDS ORDERED: CEFAZOLIN 2000MG 2,000 MG/15 ML SYR IV ONE (16:34)
[2018-09-19] MEDS ORDERED: CEFAZOLIN 2,000 MG/15 ML IV PUSH IV ONE (16:35)
--- NOTE | 2018-09-19 18:11 | Operative Report ---
Post Operative Report Pre & Post Diagnosis Operation Date: 09/19/18 14:05 Pre-Op Diagnosis: Right inter trochanteric hip fracture Post-Op Diagnosis: Right inter trochanteric hip fracture Procedure Operation Date: 09/19/18 14:05 Actual Procedures p Open reduction Internal Fixation , right trochanteric nail (Right) - Presley Albarran MD Surgeon Presley Albarran MD Vacuum Worker None Estimated Blood Loss 50 Findings Consistent with Post-Op Diagnosis Specimens None Drains None Anesthesia Type Spinal MAC Complications none Disposition Accompanied Patient To Recovery: No Disposition: Recovery Room Indications The patient is a 78-year-old male sustained a Right hip intertrochanteric fracture... There is treatment measures were discussed with the patient's and she wishes to proceed with open reduction internal fixation. He does not really ambulate much anymore but fixing the hip fracture will help with pain control and transfers. Description of Procedure Risks benefits and alternatives of surgery including but not limited to infection, DVT, PE, pain, stiffness, need for surgery, damage to blood vessels, damage to nerves or risks of anesthesia, were discussed with the patient and her family and they wished to proceed. Patient was identified in the laterality was confirmed and marked. They received a preoperative antibiotic. The patient was transferred to the fracture table. The operative limb was placed in traction and the well leg was placed in a well leg olguin that was well-padded. The arms were well-padded and placed out of the way of the surgical field. I confirmed reduction of the fracture with fluoroscopy with the patient's fracture table and made adjustments to fracture table alignment is necessary to reduce the fracture appropriately. The hip was then prepped and draped in the usual standard manner with ChloraPrep. I made a longitudinal incision proximal to the greater trochanter. I sharply incised through the skin and then used Bovie electrocautery to achieve hemostasis. I incised through the fascia and then bluntly dissected down to the tip of the greater trochanter. Under fluoroscopic guidance I placed a guide pin into the greater trochanter and ensured proper placement on both AP and lateral fluoroscopy views. Once I was satisfied with the position of the guide. I advanced this distally. I then overreamed with the 17 mm proximal reamer. I then placed a Synthes trochanteric fixation nail into position. The size of the nail was [a short nail]. Then I placed the guide arm onto the nail insertion device made a stab incision more distally and then placed the drill guide for the helical blade. I adjusted the position of the nail as necessary to ensure that the guidepin was center center in the femoral head. Once I was satisfied with the position of the pin advanced it to the appropriate position of the femoral head. I then measured and then reamed the lateral cortex and then reamed down into the femoral head. I then inserted a size [address] I then locked the set screw proximally and then compressed the fracture. Then through a stab incision I placed a interlocking screw [through the drill guide]. I confirmed hardware placement and maintenance of reduction on AP and lateral fluoroscopy views. Wounds were then thoroughly irrigated. The fascia was closed with interrupted #1 Vicryl suture. Subcutaneous tissues closed with interrupted 2-0 Vicryl suture and the skin with kasi. Sterile dressings applied. All needle and sponge counts were correct at the end of the procedure the patient was transferred to the PACU in stable condition without apparent complication. I attest to the content of the Intraoperative Record and any orders documented therein. Any exceptions are noted below.
[2018-09-19] MEDS ORDERED: HYDROmorphone INJ 0.5 MG/0.5 ML SYR IV PRN (18:12)
[2018-09-19] MEDS ORDERED: OXYCODONE HCL IR 5 MG TAB (IMMEDIATE RELEASE) PO PRN (18:12)
[2018-09-19] MEDS ORDERED: NALOXONE HCL 0.4 MG/1 ML VIAL/CARP IV PRN (18:12)
[2018-09-19] MEDS ORDERED: ACETAMINOPHEN 325 MG TAB PO PRN (18:12)
--- NOTE | 2018-09-19 18:19 | Fluoroscopy Report ---
FL femur RT 2V HISTORY: 78 years-old Male RIGHT TROCH NAIL acute right hip fracture COMPARISON: Right femur radiographs of same day TECHNIQUE: 5 spot fluoroscopic images of the right femur were obtained utilizing 81.6 seconds fluoros copy time FINDINGS: Status post placement of an intratrochanteric nail with medullary linsey fixating the previously describ ed intertrochanteric fracture. There is satisfactory near-anatomic alignment. Distal cannulated fixat ion screw. Expected postsurgical soft tissue swelling with deep tissue air. IMPRESSION: Fluoroscopic assistance as above. Please see operative report for further details. The above report was generated using voice recognition software. It may contain grammatical, syntax o r spelling errors. Electronically signed by: Jake Rahman M.D. 09/19/2018 6:18 PM
--- NOTE | 2018-09-19 18:49 | Anesthesiology Progress Note ---
Date of Service September 19, 2018 Anesthesia Post Procedure Vital Signs Vital Signs: Temp Pulse Pulse Resp BP Pulse Ox 09/19/18 18:30 65 15 133/68 100 09/19/18 18:20 37.2 C 68 17 141/77 H 98 09/19/18 16:16 36.9 C 76 16 177/87 H 100 09/19/18 15:01 162/76 H 09/19/18 09:56 78 187/85 H 09/19/18 07:25 36.9 C 78 18 155/77 H 96 09/19/18 00:08 36.5 C 71 16 154/88 H 99 Pain Intensity Right Hip: Pain Intensity: 0 Transfer of Care Handoff Completed per policy Notes Mental Status: alert / awake / arousable and see notes below Patient Amnestic to Procedure: Yes Nausea / Vomiting: adequately controlled Pain: adequately controlled Airway Patency, RR, SpO2: stable & adequate BP & HR: stable & adequate Hydration State: stable & adequate Anesthetic Complications: no major complications apparent and Pt Satisfied with anesthetic care Notes: The patient is severely demented and did not participate in his evaluation. He slept throughout his PACU stay.
[2018-09-19] MEDS: PATIENT'S HEIGHT AND/OR WEIGHT NEEDED SCH (20:53)
[2018-09-19] MEDS: ASPIRIN 81 MG ECTAB PO SCH (20:53)
[2018-09-20] MEDS: CEFAZOLIN 1000MG 1,000 MG/7.5 ML SYR IV SCH ×2 (00:54→09:48)
[2018-09-20] MEDS: SODIUM CHLORIDE 0.9% 1000ML 1,000 ML IV SCH (00:55)
[2018-09-20 05:56] LABS: Basophils # (auto) 0.02 K/uL (0-0.2); Basophils % (auto) 0.2 %; Eosinophils # (auto) 0.02 K/uL (0-0.5); Eosinophils % (auto) 0.2 %; Hemoglobin 10.2 g/dL (14.0-18.0); Immature Granulocytes # (auto) 0.02 K/uL (0.00-0.02); Immature Granulocytes % (auto) 0.2 %; Lymphocytes # (auto) 0.93 K/uL (1.2-3.4); Lymphocytes % (auto) 10.8 %; Mean Corpuscular Hgb Conc 32.9 g/dL (32-36); Mean Corpuscular Volume 94.8 fL (80-100); Mean Platelet Volume 10.5 fL (7.4-10.4); Monocytes % (auto) 9.3 %; Neutrophils # (auto) 6.82 K/uL (1.4-6.5); Neutrophils % (auto) 79.3 %; Platelet Count 185 K/uL (130-400); RDW Coefficient of Variation 13.1 % (11.5-14.5); RDW Standard Deviation 45.1 fL (36.4-46.3); Red Blood Count 3.27 M/uL (4.7-6.1); White Blood Count 8.61 K/uL (4.8-10.8)
[2018-09-20 06:34] LABS: BUN Creatinine Ratio 19.7 (10-20); Calcium 8.7 mg/dl (8.5-10.1); Est GFR (African American) 96.3; Est GFR (Non-African American) 83.1; Magnesium 1.9 mg/dl (1.8-2.4); Potassium 3.9 mmol/L (3.5-5.1)
--- NOTE | 2018-09-20 08:04 | Anesthesiology Progress Note ---
Date of Service September 20, 2018 Anesthesia Post Procedure Vital Signs Vital Signs: Temp Pulse Pulse Resp BP Pulse Ox 09/20/18 07:10 36.5 C 86 18 147/76 H 98 09/20/18 03:09 36.8 C 85 16 152/71 H 95 09/19/18 22:36 37.6 C H 96 H 18 146/60 H 98 09/19/18 21:37 36.9 C 100 H 17 144/70 H 98 09/19/18 20:30 36.6 C 83 18 138/72 100 09/19/18 20:06 37.4 C 78 17 140/62 100 09/19/18 19:30 37.4 C 74 14 159/76 H 100 09/19/18 19:10 85 17 109/81 100 09/19/18 19:00 67 18 103/68 100 09/19/18 18:50 37.7 C H 63 14 123/56 L 100 09/19/18 18:40 75 14 109/84 100 09/19/18 18:30 65 15 133/68 100 09/19/18 18:20 37.2 C 68 17 141/77 H 98 09/19/18 16:16 36.9 C 76 16 177/87 H 100 09/19/18 15:01 162/76 H 09/19/18 09:56 78 187/85 H Pain Intensity Right Hip: Pain Intensity: 4 Notes Mental Status: alert / awake / arousable and participated in evaluation Patient Amnestic to Procedure: Yes Nausea / Vomiting: adequately controlled Pain: adequately controlled Airway Patency, RR, SpO2: stable & adequate BP & HR: stable & adequate Hydration State: stable & adequate Neuraxial Anesthesia: was administered and sensory block resolved Anesthetic Complications: no major complications apparent and Pt Satisfied with anesthetic care Notes: pt is non verbal with nurse, RN states that patient was fine post anesthesia without complications
--- NOTE | 2018-09-20 08:09 | Orthopedic Progress Note ---
Date of Service September 20, 2018 Assessment & Plan (1) Closed fracture of right hip: Postop day 1 status post right TFN Out of bed to chair as able. Weightbearing as tolerated. PT/OT as able. DVT prophylaxis with aspirin twice daily, SCDs, LYNN mendez Pain management as written. DC planning-return to long term facility when stable. Subjective Postop day 1 status post right TFN Patient is currently sitting up in bed. He appears awake and is nonverbal. He appears comfortable and in no acute distress. Physical Exam Physical Exam: Dressings are clean, dry, intact. Calves are soft and appears nontender. Dorsalis pedis pulses are 2+. Capillary refill is less than 2 seconds. He is moving his toes and ankle. He does not follow commands. Results & Data Vital Signs (Past 12 Hours) Vital Signs Temp Pulse Resp BP Pulse Ox 09/20/18 07:10 36.5 C 86 18 147/76 H 98 09/20/18 03:09 36.8 C 85 16 152/71 H 95 09/19/18 22:36 37.6 C H 96 H 18 146/60 H 98 09/19/18 21:37 36.9 C 100 H 17 144/70 H 98 09/19/18 20:30 36.6 C 83 18 138/72 100 Laboratory Results Laboratory Results WBC 8.61 K/uL (4.8-10.8) 09/20/18 05:38 RBC 3.27 M/uL (4.7-6.1) L 09/20/18 05:38 Hgb 10.2 g/dL (14.0-18.0) L 09/20/18 05:38 Hct 31.0 % (42-52) L 09/20/18 05:38 MCV 94.8 fL (80-100) 09/20/18 05:38 MCH 31.2 pg (25-34) 09/20/18 05:38 MCHC 32.9 g/dL (32-36) 09/20/18 05:38 RDW Std Deviation 45.1 fL (36.4-46.3) 09/20/18 05:38 RDW Coeff of Radha 13.1 % (11.5-14.5) 09/20/18 05:38 Plt Count 185 K/uL (130-400) 09/20/18 05:38 MPV 10.5 fL (7.4-10.4) H 09/20/18 05:38 Immature Gran % (Auto) 0.2 % 09/20/18 05:38 Neut % (Auto) 79.3 % 09/20/18 05:38 Lymph % (Auto) 10.8 % 09/20/18 05:38 [place] % (Auto) 9.3 % 09/20/18 05:38 Eos % (Auto) 0.2 % 09/20/18 05:38 Baso % (Auto) 0.2 % 09/20/18 05:38 Immature Gran # (Auto) 0.02 K/uL (0.00-0.02) 09/20/18 05:38 Neut # (Auto) 6.82 K/uL (1.4-6.5) H 09/20/18 05:38 Lymph # (Auto) 0.93 K/uL (1.2-3.4) L 09/20/18 05:38 [place] # (Auto) 0.80 K/uL (0.11-0.59) H 09/20/18 05:38 Eos # (Auto) 0.02 K/uL (0-0.5) 09/20/18 05:38 Baso # (Auto) 0.02 K/uL (0-0.2) 09/20/18 05:38 PT 11.5 Seconds (9.0-12.0) 09/18/18 14:27 INR 1.1 (0.9-1.1) 09/18/18 14:27 Sodium 141 mmol/L (136-145) 09/20/18 05:38 Potassium 3.9 mmol/L (3.5-5.1) 09/20/18 05:38 Chloride 110 mmol/L (98-107) H 09/20/18 05:38 Carbon Dioxide 27 mmol/L (21-32) 09/20/18 05:38 Anion Gap 4.0 (3-11) 09/20/18 05:38 BUN 17 mg/dl (7-18) 09/20/18 05:38 Creatinine 0.89 mg/dl (0.6-1.4) 09/20/18 05:38 Est Cr Clr Drug Dosing 58.0 ml/min 09/20/18 05:38 Est GFR ( Amer) 96.3 09/20/18 05:38 Est GFR (Non-Af Amer) 83.1 09/20/18 05:38 BUN/Creatinine Ratio 19.7 (10-20) 09/20/18 05:38 Glucose 104 mg/dl (70-99) H 09/20/18 05:38 Calcium 8.7 mg/dl (8.5-10.1) 09/20/18 05:38 Magnesium 1.9 mg/dl (1.8-2.4) 09/20/18 05:38 Total Bilirubin 0.6 mg/dl (0.2-1) 09/18/18 14:27 AST 33 U/L (15-37) 09/18/18 14:27 ALT 38 U/L (12-78) 09/18/18 14:27 Alkaline Phosphatase 92 U/L (45-117) 09/18/18 14:27 Total Protein 7.3 gm/dl (6.4-8.2) 09/18/18 14:27 Albumin 3.0 gm/dl (3.4-5.0) L 09/18/18 14:27 Globulin 4.3 gm/dl (2.5-4.0) H 09/18/18 14:27 Albumin/Globulin Ratio 0.7 (0.9-2) L 09/18/18 14:27 Lipase 472 U/L (73-393) H 09/18/18 14:27 Specimen Hemolysis 09/18/18 14:27 Urine Color Dark Yellow 09/18/18 14:40 Urine Appearance Clear (Clear) 09/18/18 14:40 Urine pH 5.5 (4.5-7.5) 09/18/18 14:40 Ur Specific [place] 1.021 (1.000-1.030) 09/18/18 14:40 Urine Protein Negative (Negative) 09/18/18 14:40 Urine Glucose (UA) Negative (Negative) 09/18/18 14:40 Urine Ketones Negative (Negative) 09/18/18 14:40 Urine Blood Trace (Negative) H 09/18/18 14:40 Urine Nitrite Positive (Negative) A 09/18/18 14:40 Urine Bilirubin Negative (Negative) 09/18/18 14:40 Urine Urobilinogen Negative (Negative) 09/18/18 14:40 Ur Leukocyte Esterase 1+ (Negative) H 09/18/18 14:40 Urine WBC (Auto) 5-10 /hpf (0-5) H 09/18/18 14:40 Urine RBC (Auto) 5-10 /hpf (0-4) H 09/18/18 14:40 U Hyaline Cast (Auto) 1-5 /lpf (0-5) 09/18/18 14:40 U Epithel Cells (Auto) 10-20 /lpf (0-5) H 09/18/18 14:40 Urine Bacteria (Auto) 3+ (Negative) H 09/18/18 14:40 Nasal Screen MRSA (PCR) Negative (Negative) 09/18/18 19:30 Blood Type A Positive 09/19/18 05:49 Antibody Screen NEGATIVE 09/19/18 05:49 (1) Closed fracture of right hip Encounter type: initial encounter Qualified Code(s): S72.001A - Fracture of unspecified part of neck of right femur, initial encounter for closed fracture
[2018-09-20] MEDS: cefTRIAXone SODIUM 1,000 MG in DEXTROSE 5% 50 ML IV SCH (09:48)
[2018-09-20] MEDS: ISOSORBIDE MONO EXTENDED REL 60 MG TABCR PO SCH (10:31)
[2018-09-20] MEDS: ASPIRIN 81 MG ECTAB PO SCH ×2 (10:31→21:54)
[2018-09-20] MEDS: METOPROLOL SUCC 25MG EXT REL TAB PO SCH (10:31)
--- NOTE | 2018-09-20 11:11 | Cardiology Progress Note ---
Date of Service September 20, 2018 Assessment & Plan (1) Encounter for pre-operative examination: No cardiac complications with the procedure. Would continue usual medications Will sign off at this point time contact with any clinical concerns (2) CAD (coronary artery disease): (3) Alzheimer's dementia: Subjective Patient seen and examined, chart, medications reviewed. Patient unable to verbalize complaints due to underlying dementia Tolerated operative procedure well without cardiac complication Physical Exam Constitutional: + thin and + altered mental status Eyes: PERRL, conjunctivae normal, anicteric sclerae Neck: trachea midline, no thyromegaly Respiratory: normal respiratory effort, lungs clear to auscultation Cardiovascular: Rate/Rhythm: regular rate and regular rhythm Heart Sounds: normal S1 and normal S2 Gastrointestinal (Abdomen): normal bowel sounds, soft, nontender, no hepatosplenomegaly Musculoskeletal: Surgical wound intact Skin: no rashes, warm and dry Results & Data Vital Signs (Past 12 Hours) Vital Signs Temp Pulse Resp BP Pulse Ox 09/20/18 10:51 37.1 C 95 H 18 131/78 96 09/20/18 07:10 36.5 C 86 18 147/76 H 98 09/20/18 03:09 36.8 C 85 16 152/71 H 95 Laboratory Results Laboratory Results - last 24 hr 09/19/18 09/20/18 09/20/18 05:49 05:38 05:38 WBC 8.61 RBC 3.27 L Hgb 10.2 L Hct 31.0 L MCV 94.8 MCH 31.2 MCHC 32.9 RDW Std Deviation 45.1 RDW Coeff of Radha 13.1 Plt Count 185 MPV 10.5 H Immature Gran % (Auto) 0.2 Neut % (Auto) 79.3 Lymph % (Auto) 10.8 [place] % (Auto) 9.3 Eos % (Auto) 0.2 Baso % (Auto) 0.2 Immature Gran # (Auto) 0.02 Neut # (Auto) 6.82 H Lymph # (Auto) 0.93 L [place] # (Auto) 0.80 H Eos # (Auto) 0.02 Baso # (Auto) 0.02 Sodium 141 Potassium 3.9 Chloride 110 H Carbon Dioxide 27 Anion Gap 4.0 BUN 17 Creatinine 0.89 Est Cr Clr Drug Dosing 58.0 Est GFR ( Amer) 96.3 Est GFR (Non-Af Amer) 83.1 BUN/Creatinine Ratio 19.7 Glucose 104 H Calcium 8.7 Magnesium 1.9 Blood Type A Positive Antibody Screen NEGATIVE
--- NOTE | 2018-09-20 14:08 | Hospitalist Progress Note ---
Date of Service September 20, 2018 Assessment & Plan (1) Closed right hip fracture: - Following mechanical fall at [facility]; XR on admission with intertrochanteric right hip fracture. - Ortho consulted, s/p right TFN on 09/19, POD#1. - Morphine, Oxycodone and Dilaudid prn pain. - Weightbearing as tolerated; plan for discharge back to [facility] likely on Sunday. - DVT ppx: ASA 81 mg BID, TEDs, SCDs. (2) Shoulder subluxation: - Documented following session with PT. - Discussed with ortho -- will obtain left shoulder 2 view XR. (3) UTI (urinary tract infection): - UC pos for Enterobacter aerogenes. - Convert Ceftriaxone to Cipro for coverage per sensitivities. (4) Metabolic encephalopathy: - In setting of baseline dementia; acute confusion was likely related to UTI. - Cannot obtain history from patient -- his is usually present at bedside. (5) Dementia, Alzheimer's, with behavior disturbance: - Speech therapy consulted due to concern for aspiration -- approved for pureed diet, no straws. Pt. is able to take PO meds without difficulty. - Resides at [facility]. (6) CAD (coronary artery disease): - S/p most recently PCI to the RCA in 2014. - Continue home Imdur and Metoprolol. - ASA 81 mg BID. - Consulted [facility], appreciate input. (7) S/P coronary artery stent placement: - Consulted cardiology, was cleared pre op. (8) Hypertension: - Continue Metoprolol and Imdur as prescribed. (9) Stage III chronic kidney disease: - Renally dose all meds. (10) DNR (do not resuscitate): - Per family requests. (11) DVT prophylaxis: - SCDS; ASA 81 mg BID, TEDs, SCDs. Dispo: Discharge to [facility] likely on 09/21/18. Supervising Physician Co-Signing Physician Notes PA Supervision Note: I did not personally see or examine the patient today, but I verified all baldwin points of JEFFERY Jimenez's assessment and plan with the following exceptions/additions: None Subjective No history obtained due to dementia. His is present at bedside, states he appears comfortable. Concern for aspiration this morning -- speech therapy approved pureed diet, no straws. Pt. was able to take PO meds without difficulty. Review of Systems Review of Systems: All systems reviewed & are unremarkable except as noted in HPI & below and Unobtainable due to cognitive status Physical Exam Physical Exam: General: Resting comfortably HEENT: NC/AT; PERRLA with EOMI; [place] conjunctiva, MMM. No erythema of posterior pharynx Neck: Supple and nontender Cardiac: RRR Lungs: CTA bilaterally Abdomen: Bowel normoactive X 4; Nontender to palpation Extremities: Warm. No edema present Neuro: No focal weakness; baseline dementia. Skin: No rash Results & Data Vital Signs (Past 12 Hours) Vital Signs Temp Pulse Resp BP Pulse Ox 09/20/18 10:51 37.1 C 95 H 18 131/78 96 09/20/18 07:10 36.5 C 86 18 147/76 H 98 09/20/18 03:09 36.8 C 85 16 152/71 H 95 Laboratory Results 09/20/18 09/20/18 09/19/18 Range/Units 05:38 05:38 05:49 WBC 8.61 (4.8-10.8) K/uL RBC 3.27 L (4.7-6.1) M/uL Hgb 10.2 L (14.0-18.0) g/dL Hct 31.0 L (42-52) % MCV 94.8 (80-100) fL MCH 31.2 (25-34) pg MCHC 32.9 (32-36) g/dL RDW Std Deviation 45.1 (36.4-46.3) fL RDW Coeff of Radha 13.1 (11.5-14.5) % Plt Count 185 (130-400) K/uL MPV 10.5 H (7.4-10.4) fL Immature Gran % (Auto) 0.2 % Neut % (Auto) 79.3 % Lymph % (Auto) 10.8 % [place] % (Auto) 9.3 % Eos % (Auto) 0.2 % Baso % (Auto) 0.2 % Immature Gran # (Auto) 0.02 (0.00-0.02) K/uL Neut # (Auto) 6.82 H (1.4-6.5) K/uL Lymph # (Auto) 0.93 L (1.2-3.4) K/uL [place] # (Auto) 0.80 H (0.11-0.59) K/uL Eos # (Auto) 0.02 (0-0.5) K/uL Baso # (Auto) 0.02 (0-0.2) K/uL Sodium 141 (136-145) mmol/L Potassium 3.9 (3.5-5.1) mmol/L Chloride 110 H (98-107) mmol/L Carbon Dioxide 27 (21-32) mmol/L Anion Gap 4.0 (3-11) BUN 17 (7-18) mg/dl Creatinine 0.89 (0.6-1.4) mg/dl Est Cr Clr Drug Dosing 58.0 ml/min Est GFR ( Amer) 96.3 Est GFR (Non-Af Amer) 83.1 BUN/Creatinine Ratio 19.7 (10-20) Glucose 104 H (70-99) mg/dl Calcium 8.7 (8.5-10.1) mg/dl Magnesium 1.9 (1.8-2.4) mg/dl Blood Type A Positive Antibody Screen NEGATIVE PG Care Time/CCT Total # of Minutes Spent Total Time Spent with Patient: Total time spent is greater than 50% in coordination of care (as documented) at patient's floor/unit and/or counseling patient:
--- NOTE | 2018-09-20 16:34 | XRay Report ---
XR shoulder LT min 2V routine HISTORY: 78 years-old Male Subluxation acute left shoulder pain COMPARISON: Chest radiograph 09/18/2018 TECHNIQUE: 2 views of the left shoulder FINDINGS: Mildly demineralized appearance of the bones. No acute fracture identified on the images provided. Mi ld glenohumeral osteoarthritis. Subluxed AC joint with elevation of the distal left clavicle is likel y on a chronic basis. IMPRESSION: 1. No acute fracture identified. 2. Subluxation of the left AC joint, likely chronic. The above report was generated using voice recognition software. It may contain grammatical, syntax o r spelling errors. Electronically signed by: Jake Rahman M.D. 09/20/2018 4:32 PM
[2018-09-20] MEDS: CIPROFLOXACIN 500 MG TAB PO SCH (21:54)
[2018-09-21 06:26] LABS: Hematocrit (blood only) 28.4 % (42-52); Hemoglobin 9.5 g/dL (14.0-18.0); Mean Corpuscular Hgb Conc 33.5 g/dL (32-36); Mean Corpuscular Volume 93.7 fL (80-100); Mean Platelet Volume 10.6 fL (7.4-10.4); Platelet Count 193 K/uL (130-400); RDW Coefficient of Variation 13.4 % (11.5-14.5); Red Blood Count 3.03 M/uL (4.7-6.1)
--- NOTE | 2018-09-21 07:43 | Orthopedic Progress Note ---
Date of Service September 21, 2018 Assessment & Plan (1) Closed fracture of right hip: Postop day 2 status post right TFN Out of bed to chair as able. Weightbearing as tolerated. PT/OT as able. DVT prophylaxis with aspirin twice daily, SCDs, LYNN mendez Pain management as written. DC planning-return to [facility] as per primary team. Ortho will sign off, please call with any questions, follow up with Dr. Albarran 2 weeks post op, call [phone] for appt. Subjective POD #2 Patient non verbal. Physical Exam Physical Exam: Right hip dressings/ incisions c/d/i, no drainage, no erythema. Patient non verbal, he did open eyes in response to his name. Appears in no distress. Results & Data Vital Signs (Past 12 Hours) Vital Signs Temp Pulse Resp BP Pulse Ox Pulse Ox 09/21/18 04:00 96 09/21/18 00:00 36.8 C 88 16 128/78 95 (1) Closed fracture of right hip Encounter type: initial encounter Qualified Code(s): S72.001A - Fracture of unspecified part of neck of right femur, initial encounter for closed fracture
[2018-09-21] MEDS: ISOSORBIDE MONO EXTENDED REL 60 MG TABCR PO SCH (09:13)
[2018-09-21] MEDS: METOPROLOL SUCC 25MG EXT REL TAB PO SCH (09:13)
[2018-09-21] MEDS: ASPIRIN 81 MG ECTAB PO SCH (09:13)
[2018-09-21] MEDS ORDERED: ASPIRIN 81 MG CHEW PO SCH (09:15)
[2018-09-21 09:17] VITALS: BP 144/80; PULSE 87; TEMP 98.1; O2SAT 99
[2018-09-21] MEDS: CIPROFLOXACIN 500 MG TAB PO SCH (09:18)
[2018-09-21] MEDS ORDERED: ISOSORBIDE MONONITRATE 20 MG TAB PO SCH (10:15)
[2018-09-21] MEDS ORDERED: METOPROLOL TARTRATE 25 MG TAB PO SCH (10:15)
--- NOTE | 2018-09-21 12:21 | Discharge Summary ---
Date of Service September 21, 2018 Admission HPI Per Admitting Provider 78-year-old male [facility] [place] [facility] with Alzheimer's type dementia. He tried to get up out of the wheelchair and walk today when he fell suffering a right hip fracture. X-rays reveal a comminuted angulated intertrochanteric right hip fracture. He will be placed in Thurman's traction. Orthopedic consultation will be requested. He has a history of PTCA with stent. He sees [facility] cardiology who will be consulted for clearance for surgery. Cardiac echo pending. He is a DNR per family request Admission Exam Per Admitting Provider General-lethargic from pain medication administered in the ED. Nonverbal HEENT-head atraumatic and normocephalic, TMs intact bilaterally, pupils equal and reactive to light, extraocular muscles intact Neck-no lymphadenopathy or thyromegaly, trachea midline Chest-clear to auscultation percussion. No rales wheezing or rhonchi Cardiac-regular rate and rhythm, normal S1 and S2, no JVD Abdomen-normal bowel sounds, nontender, no hepatosplenomegaly Extremities-no cyanosis, clubbing, or edema. Right lower extremity shortened and externally rotated Neuro-lethargic from medication. Baseline dementia. No apparent focal defects Psych-cannot assess Principal Diagnosis Right Hip Fracture Discharge Exam General: Resting comfortably HEENT: NC/AT; PERRLA with EOMI; [place] conjunctiva, MMM. No erythema of posterior pharynx Neck: Supple and nontender Cardiac: RRR Lungs: CTA bilaterally Abdomen: Bowel normoactive X 4; Nontender to palpation Extremities: Warm. No edema present. Dressing in place over R hip incision site. Neuro: No focal weakness; baseline dementia, does not communicate verbally. Skin: No rash Discharge Data Allergies Allergy/AdvReac Type Severity Reaction Status Date / Time No Known Allergies Allergy Verified 09/18/18 14:48 Consultations 09/18/18 16:14 ED Decision to Admit Stat 09/18/18 18:35 Consult Cardiology Routine Consult Orthopedic Surgery Routine 09/19/18 18:12 Consult Case Management - Discharge Planning Routine Procedures Performed Operation Date: 09/19/18 14:05 Actual Procedures p Open reduction Internal Fixation , right trochanteric nail (Right) - Presley Albarran MD Ordered Studies 09/19/18 16:30 FL femur RT 2V Routine FL fluoroscopy <1hr Routine CXR 09/18/18 Shoulder XR 09/20/18 Hospital Course (1) Closed right hip fracture: Following mechanical fall at [facility]; XR on admission with intertrochanteric right hip fracture. Ortho consulted, s/p right TFN on 09/19. Morphine, Oxycodone and Dilaudid prn pain - was not requiring meds. Weightbearing as tolerated; discharge to [facility] today. DVT ppx: ASA 81 mg BID, TEDs, SCDs. F/u with orthopedics in 2 weeks. (2) Shoulder subluxation: Documented following session with PT. Discussed with ortho -- shoulder XR showed no acute changes. (3) UTI (urinary tract infection): UC pos for Enterobacter aerogenes. Converted Ceftriaxone to Cipro, will need total of 7 days. (4) Metabolic encephalopathy: In setting of baseline dementia; acute confusion was likely related to UTI. Cannot obtain history from patient -- his provided history at bedside. (5) Dementia, Alzheimer's, with behavior disturbance: Speech therapy consulted due to concern for aspiration -- approved for pureed diet, no straws. Pt. is able to take PO meds (must be crushed). Resides at [facility]. (6) CAD (coronary artery disease): S/p most recently PCI to the RCA in 2014. Continue home Imdur and Metoprolol -- changed to Tartrate 12.5 mg BID and Imdur 20 mg BID due to inability to crush long acting meds. ASA 81 mg BID. Consulted [facility] Cardiology, appreciate input. (7) S/P coronary artery stent placement: Consulted cardiology, was cleared pre op. (8) Hypertension: Continued Metoprolol and Imdur as prescribed (see above) (9) Stage III chronic kidney disease: Renally dosed all meds. (10) Apnea: 15 second periods of apnea noted during this admission. Would recommend sleep study, CPAP in future if pt. can tolerate. (11) DNR (do not resuscitate): Per family requests. (12) DVT prophylaxis: SCDS; ASA 81 mg BID, TEDs, SCDs. Discharged to [facility] on 09/21/18. Total Time Total Time Spent Total Time Spent (In Minutes): >30 minutes Total Time Includes: Examination of the Patient, Discharge Planning, Medication Reconciliation, Communication With Other Providers and Other Discharge Plan Discharge Items Patient Disposition: Transfer Long-Term Fac Reason For Visit: RT HIP FRACTURE Discharge Diagnosis: Right Hip Fracture Condition: Fair Discharge Goals: Decrease discomfort, Improve disease control, Improve function, Increase independence, Improve nutritional status and Prevent disease Activity: As commented below Activity Comment: Weightbearing as tolerated. Non-emergency contact: Primary Care Provider and Surgeon Call non-emergency contact if: you have any medication questions, your symptoms worsen, your pain is not controlled, your pain is worsening, your pain is unusual for you, your pain is concerning for you and you have a fever Follow-up/Referrals: Presley Wright MD [Primary Care Provider] - Diet: Regular Diet Texture: Pureed (blended smooth) Addtl Provider Instructions: 1. Right Hip Fracture * Please continue weight bearing as tolerated on the RLE. * Aspirin 81 mg twice daily for DVT prophylaxis -- will need to complete 4-6 week course. * Continue LYNN hose on bilateral lower extremities. * Tylenol 650 mg every 6-8 hours for pain control. * Please schedule a follow up with Dr. Albarran in 2 weeks ([phone]). 2. Urinary Tract Infection * Started on a course of antibiotics - needs to finish out a 7 day course. * Needs trial of void at [facility]--> Colin removed just prior to transport 3. Dementia * He was evaluated by speech therapy during this admission. * Please continue a pureed diet at [facility]. Pt. should not use straws. * All pills will need to be crushed (see below for medication changes) 4. Coronary Artery Disease * Aspirin dose has been increased to twice daily dosing for DVT ppx for 4-6 weeks. * Metoprolol has been changed to short acting tartrate 12.5 mg twice daily (due to need for crushing pills, cannot have long acting med) * Imdur has been changed to short acting 20 mg twice daily -- this med should be given at 8 am and 3 pm per pharmacy recs. * Please schedule a follow up with cardiology as an outpatient. 5. Please schedule a follow up with PCP in 1-2 weeks. Prescriptions: New acetaminophen [Mapap (acetaminophen)] 325 mg Tablet 650 mg PO Q4H PRN (Reason: pain) Qty: 1 RF: 0 aspirin 81 mg Tablet,Chewable 81 mg PO BID Qty: 1 RF: 0 ciprofloxacin HCl 500 mg Tablet 500 mg PO BID Qty: 10 RF: 0 Continued nitroglycerin [Nitrostat] 0.4 mg Tablet, Sublingual 0.4 mg sublingual UD PRN (Reason: Chest Pain) RF: 0 Discontinued isosorbide mononitrate 60 mg tablet extended release 24 hr 60 mg PO QAM RF: 0 metoprolol succinate 25 mg tablet extended release 24 hr 12.5 mg PO QAM RF: 0 Stand-Alone Forms: My [facility]/Other Patient Handouts: Surgery Prevent DVT After Discharge Orders: Discharge Order (Routine); Ordered 09/21/18 Ordered By: Samanta Cummins Skilled Items Patient informed of condition?: Yes DNR: Yes Discharge Level of Care: Skilled Communicable Disease: No Discharge Prognosis: Improving Admission Data Admit Date/Time: 09/18/18 16:44 Attending Provider: Samanta Cummins Admit Provider: Osvaldo Almanza Primary Care Provider: Presley Wright Other Providers: Manuel Bah ; Presley Albarran ; Kev Packer ; Maria D Jimenez ; Kilo Burdick ; Tanner Segura ; Patricia Salazar ; Waqas Bonilla ; Willian Rivera ; Fredrick Green Service: Medical Other Interventions: Discharge Summary Assessment (RN) Last Done: 09/21/18 12:13 Pending Studies at Discharge: No DC Date/Time DO NOT enter until pt leaves facility: 09/21/18 12:53 Supervising Physician Co-Signing Physician Notes PA Supervision Note: I personally saw and examined the patient. I verified all baldwin points and agree with JEFFERY Jimenez with the following exceptions and/or additions: Pt improved, nonverbal but thinks he is at baseline mental status. Is eating. VSS nonverbal, NAD RRR no mgr CTAB no wcr Rt hip with dressing in place Stable for dc to SNF, recommend transition to Hospice if has decline in function as discussed with
[2018-09-21] MEDS ORDERED: POLYETHYLENE (MIRALAX) 17 GM PACK PO SCH (18:12)
== END 2018-09-21 12:53 | DRG 480 ==
LOC: ED 12:59 → SUATTDRO 16:44 → 3E 16:44
DX: X58.XXXA Exposure to other specified factors, initial encounter; S72.141A Displaced intertrochanteric fracture of right femur, initial encounter for closed fracture; Z66 Do not resuscitate; I25.10 Atherosclerotic heart disease of native coronary artery without angina pectoris; G93.41 Metabolic encephalopathy; Z79.899 Other long term (current) drug therapy; N39.0 Urinary tract infection, site not specified; W19.XXXA Unspecified fall, initial encounter; F02.81 Dementia in other diseases classified elsewhere, unspecified severity, with behavioral disturbance; Y99.8 Other external cause status; Z99.3 Dependence on wheelchair; B96.89 Other specified bacterial agents as the cause of diseases classified elsewhere; I12.9 Hypertensive chronic kidney disease with stage 1 through stage 4 chronic kidney disease, or unspecified chronic kidney disease; Z95.5 Presence of coronary angioplasty implant and graft; Z79.82 Long term (current) use of aspirin; G30.9 Alzheimer's disease, unspecified; S43.111A Subluxation of right acromioclavicular joint, initial encounter; Y92.129 Unspecified place in nursing home as the place of occurrence of the external cause; N18.3 Chronic kidney disease, stage 3 (moderate)